=== PATIENT | female | born 1955 | race Caucasian/White ===

== ENCOUNTER → 2017-09-19 06:20 | Outpatient (CLI) | payer OTHER, SELFPAY ==
[2017-09-19 08:56] LABS: ALB/GLOB Ratio 1.2 RATIO (0.9-2.4); AST(SGOT) 29 U/L (15-37); Alanine Aminotransfer ALT/SGPT 35 U/L (13-56); Albumin, Serum 3.8 g/dL (3.2-5.0); Alkaline Phosphatase 79 U/L (45-117); Anion Gap 6 (5-15); BUN 16 mg/dL (7-18); BUN/Creat Ratio 23.2 RATIO (10-20); Calcium,Total 8.7 mg/dL (8.5-10.1); Chloride 108 mmol/L (98-107); Creatinine, Serum 0.69 mg/dL (0.55-1.02); EST Glomerular Filtration Rate 92 mL/min (>60); Est Glom Filt Rate - Afr Amer 111 mL/min (>60); Ferritin 50 ng/mL (8-252); Globulin 3.3 g/dL (2.2-4.2); Glucose 87 mg/dL (74-106); Iron 115 ug/dL (50-170); Potassium 3.8 mmol/L (3.5-5.1); Protein, Total 7.1 g/dL (6.4-8.2); Sodium Level 146 mmol/L (136-145)
[2017-09-19 09:13] LABS: Vitamin B12 723 pg/mL (211-911); Vitamin D,25 Hydroxy 56.3 ng/mL (29.95-100.01)
[2017-09-22 10:11] LABS: Vitamin B1, Thiamine 130.2 nmol/L (66.5-200.0); Zinc, Plasma or Serum 75 ug/dL (56-134)
== END ==
PROVIDERS: Family Provider Family Medicine; PCP Family Medicine
DX: K90.9 Intestinal malabsorption, unspecified (principal); E78.5 Hyperlipidemia, unspecified; E61.9 Deficiency of nutrient element, unspecified; E66.01 Morbid (severe) obesity due to excess calories
CPT/HCPCS: 36415; 80053; 82306; 82607; 82728; 82746; 83540; 83735; 84425; 84630

== ENCOUNTER → 2017-10-26 13:46 | Outpatient (CLI) | payer OTHER, SELFPAY ==
[2017-10-26 14:58] LABS: Absolute Lymphocyte Count 1.66 X10^3/ul (0.83-4.51); Absolute Neutrophil Count 1.7 X10^3/uL (2.0-7.7); Basophil# 0.01 X10^3/uL; Basophil% 0.3 % (0-1); Eosinophil# 0.06 X10^3/uL; Eosinophils% 1.7 % (0-5); Hematocrit 36.1 % (37-47); Hemoglobin 12.1 g/dl (12.0-15.0); Lymphocyte # 1.66 X10^3/ul (4.0); Lymphocyte % 46.1 % (19-41); Mean Corp Hgb Conc 33.5 g/gl (32-36); Mean Corpuscular Hgb 30.9 pg (27.0-32.0); Mean Corpuscular Volume 92.1 fL (81-99); Mean Platelet Vol. 10.3 fl (6.2-12.0); Monocyte# 0.15 X10^3/uL; Monocyte% 4.2 % (0-10); Neutrophil # 1.72 X10^3/uL (2.7-7.7); Neutrophil % 47.7 % (47-70); Platelet Count 196 K/mm3 (150-450); RBC Distribution Width CV 13.3 % (11.6-14.6); Red Blood Count 3.92 M/mm3 (4.2-5.4); White Blood Count 3.6 K/mm3 (4.4-11.0)
[2017-10-26 15:03] LABS: POSITIVE COUNT NO; POSITIVE DIFFERENTIAL NO; POSITIVE MORPHOLOGY NO
== END ==
PROVIDERS: Family Provider Family Medicine; PCP Family Medicine
DX: D72.819 Decreased white blood cell count, unspecified (principal)
CPT/HCPCS: 36415; 85025

== ENCOUNTER → 2018-04-13 16:22 | Outpatient (CLI) | payer OTHER, SELFPAY ==
[2017-01-27 07:55] VITALS: BMI 23.6
[2018-04-13 18:36] LABS: ALB/GLOB Ratio 1.1 RATIO (0.9-2.4); AST(SGOT) 21 U/L (15-37); Alanine Aminotransfer ALT/SGPT 27 U/L (13-56); Albumin, Serum 3.8 g/dL (3.2-5.0); Alkaline Phosphatase 87 U/L (45-117); Anion Gap 7 (5-15); BUN 18 mg/dL (7-18); BUN/Creat Ratio 26.5 RATIO (10-20); Calcium,Total 8.7 mg/dL (8.5-10.1); Chloride 108 mmol/L (98-107); Creatinine, Serum 0.68 mg/dL (0.55-1.02); EST Glomerular Filtration Rate 93 mL/min (>60); Est Glom Filt Rate - Afr Amer 113 mL/min (>60); Globulin 3.4 g/dL (2.2-4.2); Glucose 51 mg/dL (74-106); Iron 88 ug/dL (50-170); Potassium 3.9 mmol/L (3.5-5.1); Protein, Total 7.2 g/dL (6.4-8.2); Sodium Level 145 mmol/L (136-145)
[2018-04-17 08:51] LABS: Cholesterol 163 mg/dL (200); Ferritin 33 ng/mL (8-252); High Density Lipoprotein 52 mg/dL; Magnesium 2.2 mg/dL (1.6-2.6); Triglycerides 83 mg/dL; Very Low Density Lipoprotein 17 mg/dL (5-40)
--- OUTSIDE RECORDS SUMMARY | 2018-05-30 14:01 | XMS RPT_ITS ---
:04/03/1947 Author Organization [employer] Address [address] [place] [id number] Phone Care Team Providers Name Role Phone Pilar HIGGINS, Sotero Iniguez Unavailable Reason for Visit Reason For Visit Description Start Date Follow-up by complaint Preliminary reason for visit data, not yet signed by the author as of right shoulder pain Preliminary reason for visit data, not yet signed by the author as of Chief Complaint Chief Complaint Description Start Date right shoulder pain Preliminary chief complaint data, not yet signed by the author as of Instructions Instruction Description Start Date CompletedPatient advised to follow-up with Primary Care Physician for BMI management. Plan of Care Type Date Detail Appointment 08:45 AM Sotero Quezada MD, [address] [place] [facility], [place], [address], Medications Medication Instructions Start Stop Generic Name NDC Provider Date Date MULTIVITAMIN & daily / MULTIPLE [id number] Terena Feng MINERAL LIQD 23 VITAMINS-MINERALS RN CALCIUM 600 MG daily / CALCIUM 35692209362 Terena Feng TABS 23 RN VITAMIN D3 1000 daily / CHOLECALCIFEROL 62949569825 Terena Feng UNIT TABS 23 RN B-12 1000 MCG daily / CYANOCOBALAMIN 44048101735 Terena Feng CAPS 23 RN VITAMIN C 1000 daily / ASCORBIC ACID 14042461919 Terena Feng MG TABS 23 RN ESCITALOPRAM 1 tablet once / ESCITALOPRAM 33520037476 Terena Feng OXALATE 10 MG daily 23 OXALATE RN TABS LEVOTHYROXINE 1 tablet once / LEVOTHYROXINE 66383059947 Terena Feng SODIUM 200 MCG daily 23 SODIUM RN TABS ALPRAZOLAM 0.25 1 tablet as / ALPRAZOLAM 01795540046 Terena Feng MG TABS directed as 23 RN needed PROMETHAZINE HCL 1 tablet as / PROMETHAZINE HCL 63490394584 Terena Feng 25 MG TABS directed as 23 RN neded PRILOSEC 20 MG 1 capsule once / OMEPRAZOLE 59897798045 Terena Feng ORAL CAPSULE daily 23 RN DELAYED RELEASE ASPIRIN 81 MG 1 tablet once / ASPIRIN 49790733181 Terena Feng TBEC daily 23 RN NARATRIPTAN HCL 1 tablet as / NARATRIPTAN HCL 36278782256 Terena Feng 2.5 MG TABS directed as 23 RN needed Conditions or Problems Problem Name Problem Onset Status Entry Provider Comment Standard Annotate Code Date Date Description Complete M75.121 Active Sotero Iniguez Complete rotator cuff (ICD-10-CM) / Pilar rotator cuff tear or MD tear or rupture of rupture of right right shoulder not shoulder, specified as not traumatic specified as traumatic Impingement 793871985 Active Sotero Iniguez 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 Vital Signs Date Name Value Unit Description BMI (Body Mass 30.45 kg/m2 Body Mass Index Index) [Ratio] Preliminary vital sign data, not yet signed by the author as of BP Diastolic 71 mm[Hg] blood pressure, diastolic Preliminary vital sign data, not yet signed by the author as of BP Systolic 112 mm[Hg] blood pressure, systolic Preliminary vital sign data, not yet signed by the author as of Heart Rate 73 /min pulse rate E&M Preliminary vital sign data, not yet signed by the author as of Height 66 [in_us] height E&M Preliminary vital sign data, not yet signed by the author as of Height 168 cm height in centimeters E&M Preliminary vital sign data, not yet signed by the author as of Weight Measured 188 [lb_av] weight E&M Preliminary vital sign data, not yet signed by the author as of Weight Measured 85 kg weight in kilograms E&M Preliminary vital sign data, not yet signed by the author as of Results Date Name Value Unit Range Flag Description Office Visit: Follow-up by Danial quezada: 4 MEDS REVIEW Done Documentation of current medications (procedure) Preliminary observation data, not yet signed by the author as of Preliminary observation data, not yet signed by the author as of MRI HX of the right MRI (magnetic shoulder on resonance 05/31/2017 at [facility]) history [facility] Preliminary observation data, not yet signed by the author as of XRAY HX of the Right xray history shoulder on 05/24/[address] [facility] Preliminary observation data, not yet signed by the author as of Clinical Summary: [facility] account number Procedures Code Procedure Name Date Entry Date [id number] SLINGSHOT 2 (BREG) I8761Y POLAR CARE KODIAK COMBO - SHOULDER (BREG) G8730 Pain assessment documented as positive - follow-up documented G8427 Current medications documented 1036F Tobacco screening was negative - non user G8417 BMI documented as above normal parameters - follow-up documented G8783 Blood pressure within normal parameters - no follow-up required [facility]-[id number] Patient Encounter Medications Administered No information available. Immunizations No information available. Advance Directives There may be information available, but it has not been provided by the sender. Assessments There may be information available, but it has not been provided by the sender. Review of Systems There may be information available, but it has not been provided by the sender. Family History There may be information available, but it has not been provided by the sender. History of Past Illness There may be information available, but it has not been provided by the sender. History of Present Illness There may be information available, but it has not been provided by the sender.
--- OUTSIDE RECORDS SUMMARY | 2018-05-30 14:01 | XMS RPT_ITS ---
:1955 Author Organization [employer] Address [address] [place] [address] Phone Care Team Providers Name Role Phone Philip HIGGINS, Michael Paris Reason for Visit Reason For Visit Description Start Date Postop - subsequent visit Preliminary reason for visit data, not yet signed by the author as of bleph post facelift open submentoplasty bilateral upper and lower blepharoplasty autologous fat grafting to nasolabial creases tear troughs and zygoma; aurelia oral chemical phenol croton-oil chemical peel on 02/20/2018 Preliminary reason for visit data, not yet signed by the author as of Chief Complaint Chief Complaint Description Start Date bleph post facelift open submentoplasty bilateral upper and lower blepharoplasty autologous fat grafting to nasolabial creases tear troughs and zygoma; aurelia oral chemical phenol croton-oil chemical peel on 02/20/2018 Preliminary chief complaint data, not yet signed by the author as of Instructions No information available. Plan of Care Type Date Detail Appointment 08:15 AM Michael Palacios MD, [address] [address], [place], [address], Medications Medication Instructions Start Stop Generic Name NDC Provider Date Date CALCIUM 600 + D 1 tablet daily / CALCIUM [id number] Estefania TABS 27 CARB-CHOLECALCIFE [place] ROL TABS TESTER REGULATOR VITAMIN D3 2000 1 capsule twice / CHOLECALCIFEROL 87929997439 Estefania UNIT CAPS daily 27 [place] TESTER REGULATOR PANTOPRAZOLE 1 tablet daily / PANTOPRAZOLE 59035053967 Estefania SODIUM 40 MG 27 SODIUM [place] TBEC TESTER REGULATOR ONE DAILY 1 tablet daily MULTIPLE 56455937609 Estefania MULTIVITAMIN/IR 27 VITAMINS-IRON [place] ON TABS TESTER REGULATOR BIOTIN 07867 1 tablet twice BIOTIN 55198029461 Estefania MCG TABS daily 27 [place] TESTER REGULATOR Conditions or Problems Problem Name Problem Onset Status Entry Provider Comment Standard Annotate Code Date Date Description 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 Michael S 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/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/01 Philip HIGGINS lower eyelid CT) Blepharochala 30302170 Active Michael S Blepharochalasis sis of left (SNOMED 11/01 11/01 Philip HIGGINS lower eyelid CT) Laxity of 491148345 Active Michael S Skin finding facial skin (SNOMED 11/01 11/[address]) Facial 390948740 Active Michael S Facial appearance jowling (SNOMED 11/01 11/[address] CT) Blepharochala 02469531 Active Michael S Blepharochalasis sis of left (SNOMED 11/01 11/01 Philip HIGGINS upper eyelid CT) Blepharochala 17004063 Active Michael S 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/01 11/01 Philip HIGGINS upper eyelid CT) Allergies, Adverse Reactions, Alerts Observed no known allergies at Social History No information available. Vital Signs Date Name Value Unit Description BMI (Body Mass 22.38 kg/m2 Body Mass Index Index) [Ratio] Preliminary vital sign data, not yet signed by the author as of BP Diastolic 74 mm[Hg] blood pressure, diastolic Preliminary vital sign data, not yet signed by the author as of BP Systolic 113 mm[Hg] blood pressure, systolic Preliminary vital sign data, not yet signed by the author as of Heart Rate 71 /min pulse rate E&M Preliminary vital sign data, not yet signed by the author as of Height 65 [in_us] height E&M Preliminary vital sign data, not yet signed by the author as of Height 165 cm height in centimeters E&M Preliminary vital sign data, not yet signed by the author as of Weight Measured 134 [lb_av] weight E&M Preliminary vital sign data, not yet signed by the author as of Weight Measured 61 kg weight in kilograms E&M Preliminary vital sign data, not yet signed by the author as of Results Date Name Value Unit Range Flag Description Office Visit: Postop - subsequent visit, Rm: 6 MEDS REVIEW Done Documentation of current medications (procedure) Preliminary observation data, not yet signed by the author as of Preliminary observation data, not yet signed by the author as of Clinical Summary: [facility] account number Procedures Code Procedure Name Date Entry Date G8731 Pain assessment documented as negative - follow-up not required G8427 Current medications documented 1036F Tobacco screening was negative - non user G8420 BMI documented within normal parameters - no follow-up plan is required G8783 Blood pressure within normal parameters - no follow-up required [facility]-[id number] Patient Encounter Medications Administered No information available. [...]
--- OUTSIDE RECORDS SUMMARY | 2018-05-30 14:02 | XMS RPT_ITS ---
:1955 Author Organization [place] Support Name Relationship Address Phone Colton Siddiqi Unavailable Unavailable + Lee Siddiqiisha Unavailable Unavailable + DEVANG COLTON Unavailable [address] + [place] [address] [facility] Unavailable [address] + [place] [address] DEVANG COLTON Unavailable [address] + [place] [address] [facility] Unavailable [address] + [place] [address] Devang Colton Unavailable Unavailable + Lee Siddiqiisha Unavailable Unavailable + DEVANG COLTON Unavailable [address] + [place] [address] [facility] Unavailable [address] + [place] [address] Devang Colton Unavailable Unavailable + Devang Allisha Unavailable Unavailable + DEVANG COLTON Unavailable [address] + [place] [address] [facility] Unavailable [address] + [place] [address] DEVANG COLTON Unavailable [address] + [place] [address] [facility] Un[address] + [place] [address] Devang Colton Unavailable Unavailable + Devang, Allisha Unavailable Unavailable + COLTON SIDDIQI Unavailable [address] + [place] [address] [facility] Unavailable [address] + [place] [address] COLTON SIDDIQI Unavailable [address] + [place] [address] [facility] Unavailable [address] + [place] [address] Care Team Providers Name Role Phone MIHAELA BASURTO Attending Unavailable MIHAELA BASURTO Referring Unavailable MIHAELA BASURTO Referring Unavailable MIHAELA BASURTO Referring Unavailable PROVIDER, UNKNOWN Referring Unavailable Hood, Semaj Primary Care Unavailable Shira Evans Attending Unavailable PROVIDER, UNKNOWN Referring Unavailable Hood, Semaj Primary Care Unavailable Shira Evans Attending Unavailable PROVIDER, UNKNOWN Referring Unavailable Hood, Semaj Primary Care Unavailable Shira Evans Attending Unavailable PROVIDER, UNKNOWN Referring Unavailable Hood, Semaj Primary Care Unavailable YARELIS WESLEYA RNestor Attending Unavailable CHANCE AYON Attending Unavailable CHANCE AYON Referring Unavailable Hood, Semaj Primary Care Unavailable CHANCE AYON Attending Unavailable Hood, Semaj Primary Care Unavailable CHANCE AYON Attending Unavailable CHANCE AYON Referring Unavailable Hood, Semaj Primary Care Unavailable ASSESSMENT, HEALTH RISK Attending Unavailable ASSESSMENT, HEALTH RISK Referring Unavailable Hood, Semaj Primary Care Unavailable CHANCE AYON Attending Unavailable CHANCE AYON Referring Unavailable Hood, Semaj Primary Care Unavailable CHANCE AYON Attending Unavailable Hood, Semaj Primary Care Unavailable CHANCE AYON Referring Unavailable Mathieu Escamilla Attending Unavailable Hood, Semaj Referring Unavailable PROBLEMS PROBLEMS DATE TYPE CONDITION / CODE ATTENDING STATUS SOURCE 05/19/2018 Admitting Gastro-esophageal BRIDLE ANNA Monitor110 Diagnosis reflux disease R. System without esophagitis Repository / K21.9(ICD-10) 05/19/2018 Admitting Bariatric surgery ANNA WESLEY Monitor110 Diagnosis status / R. 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 System elsewhere Repository classified / K91.2(ICD-10) 05/19/2018 Admitting Epigastric pain / BRIDLEANNA Active [facility] Diagnosis R10.13(ICD-10) R. System Repository 04/14/2018 Admitting Obstructive sleep Shira Evans Active [facility] Diagnosis apnea (adult) System (pediatric) / Repository G47.33(ICD-10) 04/14/2018 Admitting Body mass index Shira Evans Active [facility] Diagnosis (BMI) 22.0-22.9, System adult / Repository Z68.22(ICD-10) 01/04/2018 Active Other abnormal and Active [place] inconclusive [facility] Main findings on [place] diagnostic imaging Repository of breast / R92.8(ICD-10) 12/19/2017 Active Encounter for Active [place] gynecological [facility] Main examination [place] (general) (routine) Repository without abnormal findings / Z01.419(ICD-10) 12/19/[address] 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 System elements / Repository E61.7(ICD-10) 09/23/2017 Admitting Encounter for Shira Evans Active [facility] Diagnosis screening for System lipoid disorders / Repository Z13.220(ICD-10) 09/23/2017 Admitting Decreased white Shira Evans [employer] [facility] Diagnosis blood cell count, System unspecified / Repository D72.819(ICD-10) 09/19/2017 Unknown E78.5 - CHANCE AYON Active [facility] Hyperlipidemia, Community unspecified / Hospital E78.5(ICD-10) Repository PROCEDURES PROCEDURES No Procedure Records FoundRESULTS RESULTS CBC-COMPLETE BLOOD CNT Collected: 04/24/2018 Status: F Source: [place] NO DIFF [facility] TYPE CODE TESTS RESULT OUT OF RANGE REFERENCE UNITS LAB L100.1000 4.4-11.0 K/mm3 Low WBC 4.0 LAB L100.1200 4.2-5.4 M/mm3 Low RBC 4.19 LAB L100.1300 12.0-15.0 g/dl Normal HGB 12.9 LAB L100.1400 37-47 % Normal HCT 38.7 LAB L100.1500 81-99 fL Normal MCV 92.4 LAB L100.1600 27.0-32.0 pg Normal MCH 30.8 LAB L100.1700 32-36 g/gl Normal MCHC 33.3 LAB L100.1810 11.6-14.6 % Normal RDW CV 13.4 LAB L100.1820 35.1-43.9 fl High RDW SD 45.2 LAB L100.1900 150-450 K/mm3 Normal PLT 205 LAB L100.2000 6.2-12.0 fl Normal MPV 10.0 Performed By: #### L100.0500 #### [facility] [address] [place], [place], [address] VITAMIN B12 Collected: 04/24/2018 Status: F Source: [place] 9:40 AM [facility] REPOSITORY TYPE CODE TESTS RESULT OUT OF RANGE REFERENCE UNITS LAB L503.0105 211-911 pg/mL Normal Vitamin B12 644 Performed By: #### L503.0105, L506.1000 #### [facility] [address] [place], [address] VITAMIN D,25 HYDROXY Collected: 04/24/2018 Status: F Source: [place] 9:40 AM [facility] REPOSITORY TYPE CODE TESTS RESULT OUT OF RANGE REFERENCE UNITS LAB L506.1000 29.95-100.01 ng/mL Normal Vitamin D 38.6 25-OH Result Comment: Vitamin D 25(OH) Status Range Deficiency <20 ng/mL (50nmol/L) Insuffciency 20 - 30 ng/mL (50 - 75 nmol/L) Sufficiency 30 - 100 ng/mL (75 - 250 nmol/L) Toxicity >100 ng/mL (>250 nmol/L) Performed By: #### L503.0105, L506.1000 #### [facility] [address] [place], [address] LIPID PROFILE Collected: 04/24/2018 Status: F Source: [place] 9:40 AM [facility] REPOSITORY Order Comment: Is Patient Taking Vitamins or Folic Acid Supplements? N TYPE CODE TESTS RESULT OUT OF RANGE REFERENCE UNITS LAB L501.4900 200 mg/dL Normal CHOL 138 Result Comment: <200 mg/dL Desirable 200-240 mg/dL Borderline >240 mg/dL High Risk LAB L501.5000 mg/dL Normal TRIG 104 Result Comment: The drugs N-Acetylcysteine and Metamizole may falsely depress this assay. Serum Triglycerides Reference Interval Normal <150 mg/dL Borderline high 150 - 199 mg/dL High 200 - 499 mg/dL Very High > or = 500 mg/dL LAB L501.6400 mg/dL Normal HDL 54 Result Comment: The drugs N-Acetylcysteine and Metamizole may falsely depress this assay. Reference Range HDL <40 mg/dL Low HDL Cholesterol HDL >or= 60 mg/dL High HDL Cholesterol LAB L501.6500 0-130 mg/dL Normal LDL 63 LAB L501.6600 5-40 mg/dL Normal VLDL 21 Performed By: #### L500.4100, L501.5200, L503.6550, L506.0250 #### [facility] [address] [place], [address] MAGNESIUM Collected: 04/24/2018 Status: F Source: [place] 9:40 AM [facility] REPOSITORY Order Comment: Is Patient Taking Vitamins or Folic Acid Supplements? N TYPE CODE TESTS RESULT OUT OF RANGE REFERENCE UNITS LAB L501.5200 1.6-2.6 mg/dL Normal MG 1.9 Performed By: #### L500.4100, L501.5200, L503.6550, L506.0250 #### [facility] [address] [place], [address] FERRITIN Collected: 04/24/2018 Status: F Source: [place] 9:40 AM [facility] REPOSITORY Order Comment: Is Patient Taking Vitamins or Folic Acid Supplements? N TYPE CODE TESTS RESULT OUT OF RANGE REFERENCE UNITS LAB L503.6550 8252 ng/mL Normal FERRITIN 36 Performed By: #### L500.4100, L501.5200, L503.6550, L506.0250 #### [facility] [address] [place], [address] FOLATES, (FOLIC ACID) Collected: 04/24/2018 Status: F Source: [place] 9:40 AM [facility] REPOSITORY Order Comment: Is Patient Taking Vitamins or Folic Acid Supplements? N TYPE CODE TESTS RESULT OUT OF RANGE REFERENCE UNITS LAB L506.0250 3.1-55.4 ng/mL Normal FOLATES 21.90 Performed By: #### L500.4100, L501.5200, L503.6550, L506.0250 #### [facility] [address] [place], [place], [address] VITAMIN B1, THIAMINE Collected: 04/24/2018 Status: F Source: [place] 9:40 AM [facility] REPOSITORY TYPE CODE TESTS RESULT OUT OF RANGE REFERENCE UNITS LAB L3300.8000 66.5-200.0 nmol/L Normal VIT B1 149.5 Result Comment: This test was developed and its performance characteristics determined by [facility]. It has not been cleared or approved by the Food and Drug Administration. Performed By: #### L3300.8000, L3300.9900 #### [facility] (refer to report for specific site) refer to report for address and phone number ZINC, PLASMA OR Collected: 04/24/2018 Status: F Source: [place] SERUM 9:40 AM [facility] REPOSITORY TYPE CODE TESTS RESULT OUT OF RANGE REFERENCE UNITS LAB L3300.9900 56-134 ug/dL Normal ZINC 76 Plasma/Ser Result Comment: Detection Limit = 5 Performed at: [facility] [id number] International Account Executive: Olya Rowley MD, Phone: [phone] Performed By: #### L3300.8000, L3300.9900 #### [facility] (refer to report for specific site) refer to report for address and phone number COMPREHENSIVE METABOLIC Collected: 04/13/2018 Status: F Source: [place] PROFIL 4:33 PM [facility] REPOSITORY Order Comment: Is Patient Taking Vitamins or Folic Acid Supplements? N TYPE CODE TESTS RESULT OUT OF RANGE REFERENCE UNITS LAB L501.0100 74-106 mg/dL Low GLU 51 Result Comment: Please note revised GLUCOSE reference range effective 2017. LAB L501.1000 7-18 mg/dL Normal BUN 18 LAB L501.1100 0.55-1.02 mg/dL Normal CREAT,SERUM 0.68 Result Comment: The validity of the calculated GFR AND GFRAA in patients over 70 years has not been determined. Clinical correlation is essential. LAB L501.1110 >60 mL/min Normal EST GFR 93 Result Comment: Non- GFR Calc LAB L501.1115 >60 mL/min Normal EST GFR - AA 113 Result Comment: GFR Calc LAB L501.1300 10-20 RATIO High BUN/CRE 26.5 LAB L501.1500 6.4-8.2 g/dL T Normal PROT 7.2 LAB L501.1800 3.2-5.0 g/dL Normal ALB 3.8 LAB L501.1950 2.2-4.2 g/dL Normal GLOB 3.4 LAB L501.2000 0.9-2.4 RATIO Normal A/G 1.1 LAB L501.2200 8.5-10.1 mg/dL CA Normal 8.7 LAB L501.4100 15-37 U/L Normal AST 21 LAB L501.4305 45-117 U/L Normal ALK P 87 LAB L501.4405 13-56 U/L Normal ALT 27 LAB L501.4600 0.20-1.00 mg/dL T Normal BILI 0.50 LAB L501.5300 136-145 mmol/L NA Normal 145 LAB L501.5600 3.5-5.1 mmol/L K Normal 3.9 LAB L501.5900 98-107 mmol/L High CL 108 LAB L501.6100 21.0-32.0 mmol/L Normal CO2 30.0 LAB L501.6200 5-15 Normal GAP 7 Performed By: #### L500.4050, L503.6150, L500.4100, L501.5200, L503.6550, L506.0250 #### [facility] [place], [address] IRON Collected: 04/13/2018 Status: F Source: [place] 4:33 PM [facility] REPOSITORY Order Comment: Is Patient Taking Vitamins or Folic Acid Supplements? N TYPE CODE TESTS RESULT OUT OF RANGE REFERENCE UNITS LAB L503.6150 50-170 ug/dL Normal IRON 88 Performed By: #### L500.4050, L503.6150, L500.4100, L501.5200, L503.6550, L506.0250 #### [facility] [address] [place], [place], [address] LIPID PROFILE Collected: 04/13/2018 Status: F Source: [place] 4:33 PM [facility] REPOSITORY Order Comment: Is Patient Taking Vitamins or Folic Acid Supplements? N TYPE CODE TESTS RESULT OUT OF RANGE REFERENCE UNITS LAB L501.4900 200 mg/dL Normal CHOL 163 Result Comment: <200 mg/dL Desirable 200-240 mg/dL Borderline >240 mg/dL High Risk LAB L501.5000 mg/dL Normal TRIG 83 Result Comment: The drugs N-Acetylcysteine and Metamizole may falsely depress this assay. Serum Triglycerides Reference Interval Normal <150 mg/dL Borderline high 150 - 199 mg/dL High 200 - 499 mg/dL Very High > or = 500 mg/dL LAB L501.6400 mg/dL Normal HDL 52 Result Comment: The drugs N-Acetylcysteine and Metamizole may falsely depress this assay. Reference Range HDL <40 mg/dL Low HDL Cholesterol HDL >or= 60 mg/dL High HDL Cholesterol LAB L501.6500 0-130 mg/dL Normal LDL 94 LAB L501.6600 5-40 mg/dL Normal VLDL 17 Performed By: #### L500.4050, L503.6150, L500.4100, L501.5200, L503.6550, L506.0250 #### [facility] [address] [place], [place], [address] MAGNESIUM Collected: 04/13/2018 Status: F Source: [place] 4:33 PM [facility] REPOSITORY Order Comment: Is Patient Taking Vitamins or Folic Acid Supplements? N TYPE CODE TESTS RESULT OUT OF RANGE REFERENCE UNITS LAB L501.5200 1.6-2.6 mg/dL Normal MG 2.2 Performed By: #### L500.4050, L503.6150, L500.4100, L501.5200, L503.6550, L506.0250 #### [facility] [address] [place], [place], [address] FERRITIN Collected: 04/13/2018 Status: F Source: [place] 4:33 PM [facility] REPOSITORY Order Comment: Is Patient Taking Vitamins or Folic Acid Supplements? N TYPE CODE TESTS RESULT OUT OF RANGE REFERENCE UNITS LAB L503.6550 8-252 ng/mL Normal FERRITIN 33 Performed By: #### L500.4050, L503.6150, L500.4100, L501.5200, L503.6550, L506.0250 #### [facility] [address] [place], [place], [id number] FOLATES, (FOLIC ACID) Collected: 04/13/2018 Status: F Source: [place] 4:33 PM [facility] REPOSITORY Order Comment: Is Patient Taking Vitamins or Folic Acid Supplements? N TYPE CODE TESTS RESULT OUT OF RANGE REFERENCE UNITS LAB L506.0250 3.1-55.4 ng/mL Normal FOLATES 22.80 Performed By: #### L500.4050, L503.6150, L500.4100, L501.5200, L503.6550, L506.0250 #### [facility] [address] [place], [place], [address] PROGRESS Observed: 01/04/2018 Status: COMPLETED Source: [place] 3:48 PM [facility] REPOSITORY HNO ID: [id number] Author: Dary Stark Service: (none) Author Type: Ship'S Captain Type: Progress Notes Filed: 01/04/2018 3:48 PM Note Text: Radiology Service Progress Note PATIENT NAME: Ladan Siddiqi DATE OF SERVICE: January 04, 2018 TIME: 3:48 PM PATIENT IDENTITY VERIFICATION COMPLETED USING TWO (2) METHODS: Patient confirmed name verbally and Date of . PATIENT GENDER DATA: Female. status: : No status: N/A PATIENT RELEVANT IMPLANT DATA REVIEWED: Not Applicable RADIOLOGY DEPARTMENT: Ultrasound PERIPHERAL IV DATA: Not applicable SIGNED BY: DARY STARK RDMS RVSagar January 04, 2018 3:48 PM [facility] Observed: 01/04/2018 Status: COMPLETED Source: [place] 3:43 PM [facility] REPOSITORY HNO ID: [id number] Author: Mammography Coordinator Service: (none) Author Type: Physician Type: Letter Filed: 01/05/2018 11:32 PM Note Text: January 04, 2018 PID: [id number] Ladan Siddiqi [address] [place] [address] Dear Ms. Siddiqi, Your recent breast imaging examination performed on 01/04/2018 showed an area that we believe is probably benign (not cancer). A six month follow-up is recommended to ensure your breast health. Please call [phone] to schedule an appointment for these tests if you have not already done so. Your mammogram demonstrates that you have dense breast tissue, which could hide abnormalities. Dense breast tissue, in and of itself, is a relatively common condition. Therefore, this information is not provided to cause undue concern; rather, it is to raise your awareness and promote discussion with your health care provider regarding the presence of dense breast tissue in addition to other risk factors. Early detection of cancer is very important. We also understand recommendations regarding breast cancer screening are controversial. Please discuss with your primary care provider which strategy is best for you and whether a mammogram is right for you. Your breast images and report will be kept on file here as part of your permanent medical record and are available for your continuing care. Thank you for allowing us to help in meeting your health care needs. Sincerely, Dr. Lu Interpreting Radiologist [facility] (# mo Follow-up) [facility] Observed: 01/04/2018 Status: COMPLETED Source: [place] 3:43 PM [facility] REPOSITORY HNO ID: [id number] Author: Mammography Coordinator Service: (none) Author Type: Physician Type: Letter Filed: 01/05/2018 11:32 PM Note Text: January 04, 2018 PID: [id number] Ladan Siddiqi [address] [place] [address] Dear Ms. Siddiqi, Your recent breast imaging examination performed on 01/04/2018 showed an area that we believe is probably benign (not cancer). A six month follow-up is recommended to ensure your breast health. Please call [phone] to schedule an appointment for these tests if you have not already done so. Your mammogram demonstrates that you have dense breast tissue, which could hide abnormalities. Dense breast tissue, in and of itself, is a relatively common condition. Therefore, this information is not provided to cause undue concern; rather, it is to raise your awareness and promote discussion with your health care provider regarding the presence of dense breast tissue in addition to other risk factors. Early detection of cancer is very important. We also understand recommendations regarding breast cancer screening are controversial. Please discuss with your primary care provider which strategy is best for you and whether a mammogram is right for you. Your breast images and report will be kept on file here as part of your permanent medical record and are available for your continuing care. Thank you for allowing us to help in meeting your health care needs. Sincerely, Dr. Lu Interpreting Radiologist [facility] (# mo Follow-up) [facility] [employer] Observed: 01/04/2018 Status: F Source: [place] RT 3:38 PM [facility] REPOSITORY * * *Final Report* * * DATE OF EXAM: Jan 04 2018 3:38PM WRU [id number] - [facility] BREAST Enjoi RT / PROCEDURE REASON: Other abnormal and inconclusive findings on diagnostic imaging of breast * * * * Physician Interpretation * * * * #[id number] - [facility] DIAGNOSTIC RT UNILATERAL RIGHT DIGITAL DIAGNOSTIC MAMMOGRAM WITH CAD: 01/04/2018 HISTORY: Other Abnormal And Inconclusive Findings On Diagnostic Imaging Of Breast /Call back/abnormal mamm: Right. RESULT: TECHNIQUE: The study was acquired using full field digital technology and interpreted from soft copy. Current study was also evaluated with a Computer Aided Detection (CAD). Comparison is made to exams dated: 12/19/2017 mammogram, 09/03/2016 mammogram, and 08/05/2015 mammogram - [facility]. The tissue of the right breast is heterogeneously dense. This may lower the sensitivity of mammography. There is a 6 mm oval equal density asymmetry with an obscured margin in the right breast middle depth medial region seen on the craniocaudal view only. No other significant masses or calcifications are seen in the breast. PROBABLY BENIGN - SHORT TERM INTERVAL FOLLOW-UP RECOMMENDED The 6 mm oval equal density asymmetry in the right breast is probably benign. #[id number] - [facility] US BREAST LTD RT ULTRASOUND OF RIGHT BREAST: 01/04/2018 RESULT: Comparison is made to exams dated: 12/19/2017 mammogram, 09/03/2016 mammogram, and 08/05/2015 mammogram - [facility]. Real-time ultrasound of the right breast was performed. There is a 0.6 cm x 0.7 cm x 0.3 cm oval cyst with a septated internal wall in the right breast at 3 o'clock posterior depth 1 cm from the nipple. This oval cyst is hypoechoic with a well-defined boundary and internal echoes. This correlates with mammography findings. There are additional smaller complicated cysts. IMPRESSION: PROBABLY BENIGN - SHORT TERM INTERVAL FOLLOW-UP RECOMMENDED - FOLLOW-UP RECOMMENDED The 0.6 cm x 0.7 cm x 0.3 cm oval cyst in the right breast is consistent with a complicated cyst and is probably benign. A follow-up mammogram and an ultrasound in 6 months is recommended to demonstrate stability. Ilda nelson/geovanni:01/04/2018 15:43:17 Lead Quality Control Technician: Megan ASHRAF(Matt)(Hira), [facility] letter sent: # Mo FU Mammogram BI-RADS: 3 Probably benign finding - short term interval follow-up recommended Ultrasound BI-RADS: 3 Probably benign finding - short term interval follow-up recommended Manager Filter: Geovanni Transcribe Date/Time: Jan 04 2018 2:48P Dictated by : ILDA LU MD This examination was interpreted and the report reviewed and electronically signed by: ILDA LU MD on Jan 04 2018 3:43PM EST [id number] Observed: 01/04/2018 Status: COMPLETED Source: [place] 3:16 PM [facility] REPOSITORY O ID: [id number] Author: Megan Ashraf Service: (none) Author Type: (none) Type: Progress Notes Filed: 01/04/2018 3:17 PM Note Text: Radiology Service Progress Note PATIENT NAME: Ladan Siddiqi DATE OF SERVICE: January 04, 2018 TIME: 3:16 PM PATIENT IDENTITY VERIFICATION COMPLETED USING TWO (2) METHODS: Patient confirmed name verbally and Date of . PATIENT GENDER DATA: Female. status: : No status: NO. PATIENT RELEVANT IMPLANT DATA REVIEWED: Not Applicable RADIOLOGY DEPARTMENT: [facility] right diagnostic mammogram PERIPHERAL IV DATA: Not applicable SIGNED BY: Megan Gonzales Rt January 04, 2018 3:16 PM [facility] DIAGNOSTIC RT Observed: 01/04/2018 Status: F Source: [place] 3:06 PM [facility] REPOSITORY * * *Final Report* * * DATE OF EXAM: Jan 04 2018 3:06PM [id number] - [facility] DIAGNOSTIC RT / PROCEDURE REASON: Other abnormal and inconclusive findings on diagnostic imaging of breast * * * * Physician Interpretation * * * * RESULT: #[id number] - [facility] DIAGNOSTIC RT UNILATERAL RIGHT DIGITAL DIAGNOSTIC MAMMOGRAM WITH CAD: 01/04/2018 HISTORY: Other Abnormal And Inconclusive Findings On Diagnostic Imaging Of Breast /Call back/abnormal mamm: Right. RESULT: TECHNIQUE: The study was acquired using full field digital technology and interpreted from soft copy. Current study was also evaluated with a Computer Aided Detection (CAD). Comparison is made to exams dated: 12/19/2017 mammogram, 09/03/2016 mammogram, and 08/05/2015 mammogram - [facility]. The tissue of the right breast is heterogeneously dense. This may lower the sensitivity of mammography. There is a 6 mm oval equal density asymmetry with an obscured margin in the right breast middle depth medial region seen on the craniocaudal view only. No other significant masses or calcifications are seen in the breast. PROBABLY BENIGN - SHORT TERM INTERVAL FOLLOW-UP RECOMMENDED The 6 mm oval equal density asymmetry in the right breast is probably benign. #[id number] - [facility] US BREAST LTD RT ULTRASOUND OF RIGHT BREAST: 01/04/2018 RESULT: Comparison is made to exams dated: 12/19/2017 mammogram, 09/03/2016 mammogram, and 08/05/2015 mammogram - [facility]. Real-time ultrasound of the right breast was performed. There is a 0.6 cm x 0.7 cm x 0.3 cm oval cyst with a septated internal wall in the right breast at 3 o'clock posterior depth 1 cm from the nipple. This oval cyst is hypoechoic with a well-defined boundary and internal echoes. This correlates with mammography findings. There are additional smaller complicated cysts. IMPRESSION: PROBABLY BENIGN - SHORT TERM INTERVAL FOLLOW-UP RECOMMENDED - FOLLOW-UP RECOMMENDED The 0.6 cm x 0.7 cm x 0.3 cm oval cyst in the right breast is consistent with a complicated cyst and is probably benign. A follow-up mammogram and an ultrasound in 6 months is recommended to demonstrate stability. Ilda nelson/geovanni:01/04/2018 15:43:17 Lead Quality Control Technician: Megan COLON)(Hira, [facility] letter sent: # Mo FU Mammogram BI-RADS: 3 Probably benign finding - short term interval follow-up recommended Ultrasound BI-RADS: 3 Probably benign finding - short term interval follow-up recommended Manager Filter: Geovanni Transcribe Date/Time: Jan 04 2018 2:48P Dictated by: ILDA LU MD This examination was interpreted and the report reviewed and electronically signed by: ILDA LU MD on Jan 04 2018 3:43PM EST [id number] CNCO Observed: 12/19/2017 Status: COMPLETED Source: [place] 3:53 PM [facility] REPOSITORY HNO ID: [id number] Author: Mammography Coordinator Service: (none) Author Type: Physician Type: Letter Filed: 12/20/2017 11:33 PM Note Text: December 19, 2017 PID: [id number] Ladan Siddiqi [address] [place] [address] Dear Ms. Siddiqi, Your recent breast imaging exam on 12/19/2017 showed a possible finding that requires additional imaging studies for a complete evaluation. Most such findings are probably benign (not cancer). Please call [phone] or [phone]: [phone] to schedule an appointment for your additional imaging if you have not already done so. Your mammogram demonstrates that you have dense breast tissue, which could hide abnormalities. Dense breast tissue, in and of itself, is a relatively common condition. Therefore, this information is not provided to cause undue concern; rather, it is to raise your awareness and promote discussion with your health care provider regarding the presence of dense breast tissue in addition to other risk factors. Your breast images and report will be kept on file here as part of your permanent medical record and are available for your continuing care. Thank you for allowing us to help in meeting your health care needs. Sincerely, Dr. Carrera Interpreting Radiologist [facility] (Additional imaging) [facility] SCREENING Observed: 12/19/2017 Status: F Source: [place] 3:37 PM [facility] RE[facility] * * *Final Report* * * DATE OF EXAM: Dec 19 2017 3:37PM WOW [id number] - [facility] SCREENING / PROCEDURE REASON: multiple diagnoses * * * * Physician Interpretation * * * * RESULT: #[id number] - [facility] SCREENING BILATERAL DIGITAL SCREENING MAMMOGRAM WITH CAD: 12/19/2017 HISTORY: Multiple Diagnoses\ Screening Mammogram - patient reports NO breast symptoms /SEE TECH NOTE /patient reports no breast symptoms /priors available for comparison. RESULT: TECHNIQUE: The study was acquired using full field digital technology and interpreted from soft copy. Current study was also evaluated with a Computer Aided Detection (CAD). Comparison is made to exams dated: 09/03/2016 mammogram, 08/05/2015 mammogram, 03/29/2011 mammogram, 03/30/2012 mammogram, and 05/29/2013 mammogram - [facility]. The tissue of both breasts is heterogeneously dense. This may lower the sensitivity of mammography. There is an asymmetry in the right breast anterior depth inner region seen on the craniocaudal view only. No other significant masses, calcifications, or other findings are seen in either breast. IMPRESSION: INCOMPLETE: NEEDS ADDITIONAL IMAGING EVALUATION The asymmetry in the right breast is indeterminate. Additional views are recommended. Chicho Carrera M.D. pt/geovanni:12/19/2017 15:53:08 Lead Quality Control Technician: Camryn ASHRAF(R)(Hira), [facility] letter sent: Additional Imaging Needed Mammogram BI-RADS: 0 Incomplete: needs additional imaging evaluation If this report indicates you need additional imaging, and it has NOT yet been performed, please call , to schedule. We sincerely thank you for choosing the [facility] for your breast imaging needs. Manager Filter: Geovanni Transcribe Date/Time: Dec 19 2017 3:38P Dictated by: CHICHO CARRERA MD This examination was interpreted and the report reviewed and electronically signed by: CHICHO CARRERA MD on Dec 19 2017 3:53PM EST [id number] PROGRESS Observed: 12/08/2017 Status: COMPLETED Source: [place] 3:43 PM [facility] REPOSITORY O ID: [id number] Author: Mihaela Basurto Service: (none) Author Type: Physician Type: Progress Notes Filed: 12/08/2017 5:01 PM Note Text: Ladan Siddiqi is a 62 year old who presents for her annual gynecologic exam without complaints. Postmenopausal: Yes Last Pap: 2016 normal HPV: 2016 negative History of abnormal pap: Yes - more than 20 years ago Last mammogram: 2017 normal History of abnormal mammogram: Yes Obstetric History T0 L2 SAB0 TAB0 Ectopic0 Multiple0 Live Births0 PAST MEDICAL HISTORY Diagnosis Date - Branch retinal vein occlusion of left eye 05/2010 PAST SURGICAL HISTORY Procedure Laterality Date - COLONOSCOP W/ OR W/O BRSH SPEC 2004 Colonoscopy - COLONOSCOP W/ OR W/O BRSH SPEC 06/21/14 Colonoscopy - DANDC, DIAG AND/OR THERAPEUTIC Dilation AND curettage - GASTRIC BYPASS HX 03/2016 - L'SCOPE DX W/WO BRUSHINGS/WASHINGS 1979 Laparoscopy - PAST SURGICAL HISTORY OF BREAST BIOPSY - SLING OPER STRES INCONTINENCE 09/05/14 and cystoscopy - VITRECTOMY,FOCAL LASER RX RETINA 05/2015 left eye FAMILY HISTORY Problem Relation Age of Onset - Colon Cancer Mother - Breast Cancer Mother 75 mastectomy - Breast Cancer Maternal Aunt SOCIAL HISTORY Social History Substance Use Topics - Smoking status: Former Smoker Packs/day: 1.50 Years: 36.00 - Smokeless tobacco: Never Used Comment: started at age 14; quit 2005 - Alcohol use No REVIEW OF SYSTEMS Abdomen: No abdominal pain, nausea, vomiting, diarrhea, or constipation. No bloating, early satiety, indigestion, or increased flatulence. Bladder: No dysuria, gross hematuria, urinary frequency, urinary urgency, or incontinence Breast: No breast lumps, nipple d/c, overlying skin changes, redness or skin retraction Allergies and current medication updated:Yes EXAM: Ht 5' 5 (1.65m) Wt 133 lb (60.3kg) LMP 05/02/2004 BMI 22.13 kg/(m2). GENERAL: pleasant, female in no apparent distress BREAST: soft, non-tender, symmetric, no dominant mass, normal nipple-areolar complex, no lymphadenopathy and no nipple discharge CHEST: Normal inspiratory effort ABDOMEN: soft, non-tender and no masses PELVIC: external genitalia normal, no vulvar lesions, no cervical lesions, normal appearing perineal body and perianal region BIMANUAL: uterus normal size, shape and consistency, no adnexal masses and non-tender RECTOVAGINAL: rectovaginal exam negative for any masses or nodularity. NEURO: alert and oriented x3,exam grossly non-focal EXTREMITIES: normal ASSESSMENT/PLAN: 1) Health maintenance: Pap/HPV up to date. Mammogram ordered Nutrition, exercise and routine health maintenance exams reviewed. Colon cancer screening: up to date with screening 2) Follow up one year or sooner as needed 3) Multiple moles - follows with derm Mihaela Basurto MD CNOV Observed: 12/08/2017 Status: COMPLETED Source: [place] 3:40 PM [facility] REPOSITORY Office Visit (WOOB) LADAN SIDDIQI ([id number]) 1955 F Date Time Provider Department 12/08/17 3:40 PM MIHAELA BASURTO During your visit today, we recorded the following information about you: Blood pressure Weight Height 92/54 60.3 kg 1.651 m Mihaela Basurto MD 12/08/2017 5:01 PM Signed Ladan Siddiqi is a 62 year old who presents for her annual gynecologic exam without complaints. Postmenopausal: Yes Last Pap: 2016 normal HPV: 2016 negative History of abnormal pap: Yes - more than 20 years ago Last mammogram: 2017 normal History of abnormal mammogram: Yes Obstetric History T0 L2 SAB0 TAB0 Ectopic0 Multiple0 Live Births0 PAST MEDICAL HISTORY Diagnosis Date - Branch retinal vein occlusion of left eye 05/2010 PAST SURGICAL HISTORY Procedure Laterality Date - COLONOSCOP W/ OR W/O BRSH SPEC 2004 Colonoscopy - COLONOSCOP W/ OR W/O BRSH SPEC 06/21/14 Colonoscopy - DANDC, DIAG AND/OR THERAPEUTIC Dilation AND curettage - GASTRIC BYPASS HX 03/2016 - L'SCOPE DX W/WO BRUSHINGS/WASHINGS 1979 Laparoscopy - PAST SURGICAL HISTORY OF BREAST BIOPSY - SLING OPER STRES INCONTINENCE 09/05/14 and cystoscopy - VITRECTOMY,FOCAL LASER RX RETINA 05/2015 left eye FAMILY HISTORY Problem Relation Age of Onset - Colon Cancer Mother - Breast Cancer Mother 75 mastectomy - Breast Cancer Maternal Aunt SOCIAL HISTORY Social History Substance Use Topics - Smoking status: Former Smoker Packs/day: 1.50 Years: 36.00 - Smokeless tobacco: Never Used Comment: started at age 14; quit 2005 - Alcohol use No REVIEW OF SYSTEMS Abdomen: No abdominal pain, nausea, vomiting, diarrhea, or constipation. No bloating, early satiety, indigestion, or increased flatulence. Bladder: No dysuria, gross hematuria, urinary frequency, urinary urgency, or incontinence Breast: No breast lumps, nipple d/c, overlying skin changes, redness or skin retraction Allergies and current medication updated:Yes EXAM: Ht 5' 5 (1.65m) Wt 133 lb (60.3kg) LMP 05/02/2004 BMI 22.13 kg/(m2). GENERAL: pleasant, female in no apparent distress BREAST: soft, non-tender, symmetric, no dominant mass, normal nipple-areolar complex, no lymphadenopathy and no nipple discharge CHEST: Normal inspiratory effort ABDOMEN: soft, non-tender and no masses PELVIC: external genitalia normal, no vulvar lesions, no cervical lesions, normal appearing perineal body and perianal region BIMANUAL: uterus normal size, shape and consistency, no adnexal masses and non-tender RECTOVAGINAL: rectovaginal exam negative for any masses or nodularity. NEURO: alert and oriented x3,exam grossly non-focal EXTREMITIES: normal ASSESSMENT/PLAN: 1) Health maintenance: Pap/HPV up to date. Mammogram ordered Nutrition, exercise and routine health maintenance exams reviewed. Colon cancer screening: up to date with screening 2) Follow up one year or sooner as needed 3) Multiple moles - follows with derm Mihaela Basurto MD Referring Provider: SELF [200] Allergies As of Date: 12/08/2017 (No Known Allergies) Date Reviewed: 12/08/2017 Reviewed by: Mihaela Basurto - Fully Assessed Visit Diagnoses:Encounter for gynecological examination (general) (routine) without abnormal findings [Z01.419] Encounter for screening mammogram for breast cancer [Z12.31] Order(s):CHAY SCREENING [9222935] Order #: [id number] FUTURE CHAY SCREENING [[id number]] Order #: [id number] FUTURE Prescriptions as of 12/08/2017 Sig: ASCORBIC ACID (VITAMIN C) 1,0* VITAMIN C 1000 MG TABS BIOTIN 10,000 MCG CAPSULE TWICE A DAY CHOLECALCIFEROL (VITAMIN D3) * VITAMIN D3 1000 UNIT TABS CYANOCOBALAMIN (VIT B-12) 1,0* B-12 1000 MCG CAPS MULTIVITAMIN ORAL Take by mouth. PANTOPRAZOLE 40 MG TABLET,DEL* Take 40 mg by mouth once sy* Problem List As Of Date 12/08/2017 Noted Resolved Special screening for malignant neoplasm of the*INVALID FOR* JESSE (stress urinary incontinence, female) [N39.*INVALID FOR* Special screening for malignant neoplasms, colo*INVALID FOR*06/21/2014 Medications Discontinued During This Encounter aspirin 81 mg ORAL chewable tablet 12/08/2017 Class: Med Update Route: ORAL Sig: Take 81 mg by mouth once daily. Disc: Discontinued by Patient SERTRALINE HCL (ZOLOFT ORAL) 12/08/2017 Class: Historical Med Route: ORAL Sig: Take 10 mg by mouth once daily. Disc: Discontinued by Patient ibuprofen (MOTRIN) 800 mg tablet 12/08/2017 Class: Historical Med Route: ORAL Sig: Take 800 mg by mouth every 8 hours as needed. Disc: Discontinued by Patient atorvastatin (LIPITOR) 20 mg tablet 12/08/2017 Class: Historical Med Route: ORAL Sig: Take 20 mg by mouth once daily. Disc: Discontinued by Patient venlafaxine ER (EFFEXOR XR) 75 mg 24* 12/08/2017 Class: Historical Med Route: ORAL Sig: Take 75 mg by mouth once daily. Disc: Discontinued by Patient Disposition: Return in 1 year (on 12/08/2018) for Annual Exam. Follow-up and Disposition History Recorded Encounter Status:Closed by MIHAELA BASURTO MD on 12/08/17 CBC W/DIFF, AUTOMATED Collected: 10/26/2017 Status: F Source: [place] 1:52 PM [facility] REPOSITORY TYPE CODE TESTS RESULT OUT OF RANGE REFERENCE UNITS LAB L100.1000 4.4-11.0 K/mm3 Low WBC 3.6 LAB L100.1200 4.2-5.4 M/mm3 Low RBC 3.92 LAB L100.1300 12.0-15.0 g/dl Normal HGB 12.1 LAB L100.1400 37-47 % Low HCT 36.1 LAB L100.1500 81-99 fL Normal MCV 92.1 LAB L100.1600 27.0-32.0 pg Normal MCH 30.9 LAB L100.1700 32-36 g/gl Normal MCHC 33.5 LAB L100.1810 11.6-14.6 % Normal RDW CV 13.3 LAB L100.1820 35.1-43.9 fl High RDW SD 44.0 LAB L100.1900 150-450 K/mm3 Normal PLT 196 LAB L100.2000 6.2-12.0 fl Normal MPV 10.3 LAB L100.2100 47-70 % Normal NEUT% 47.7 LAB L100.2200 19-41 % High LY% 46.1 LAB L100.2300 0-10 % Normal MONO% 4.2 LAB L100.2400 0-5 % Normal EO% 1.7 LAB L100.2500 0-1 % Normal BASO% 0.3 LAB L100.2550 0.0-0.9 % Normal IM GRAN % 0.000 Result Comment: IG% - Immature Granulocytes (promyelocytes, myelocytes and metamyelocytes) > 1% indicates that a LEFT SHIFT is Present. LAB L100.2620 2.0-7.7 X10 3/uL Low Absolute Neut 1.7 LAB L100.2720 0.83-4.51 X10 3/ul Normal Absolute Lymph 1.66 Performed By: #### L100.0100 #### [facility] [address] [place], [place], [address] COMPREHENSIVE METABOLIC Collected: 09/19/2017 Status: F Source: [place] 6:34 AM [facility] REPOSITORY Order Comment: LIPID,CBC ARE IN PT'S EMP LABS Is Patient Taking Vitamins or Folic Acid Supplements? N TYPE CODE TESTS RESULT OUT OF RANGE REFERENCE UNITS LAB L501.0100 74-106 mg/dL Normal GLU 87 Result Comment: Please note revised GLUCOSE reference range effective 2017. LAB L501.1000 7-18 mg/dL Normal BUN 16 LAB L501.1100 0.55-1.02 mg/dL Normal CREAT,SERUM 0.69 Result Comment: The validity of the calculated GFR AND GFRAA in patients over 70 years has not been determined. Clinical correlation is essential. LAB L501.1110 >60 mL/min Normal EST GFR 92 Result Comment: Non- GFR Calc LAB L501.1115 >60 mL/min Normal EST GFR - AA 111 Result Comment: GFR Calc LAB L501.1300 10-20 RATIO High BUN/CRE 23.2 LAB L501.1500 6.4-8.2 g/dL T Normal PROT 7.1 LAB L501.1800 3.2-5.0 g/dL Normal ALB 3.8 LAB L501.1950 2.2-4.2 g/dL Normal GLOB 3.3 LAB L501.2000 0.9-2.4 RATIO Normal A/G 1.2 LAB L501.2200 8.5-10.1 mg/dL CA Normal 8.7 LAB L501.4100 15-37 U/L Normal AST 29 LAB L501.4305 45-117 U/L Normal ALK P 79 LAB L501.4405 13-56 U/L Normal ALT 35 LAB L501.4600 0.20-1.00 mg/dL T Normal BILI 0.70 LAB L501.5300 136-145 mmol/L High NA 146 LAB L501.5600 3.5-5.1 mmol/L K Normal 3.8 LAB L501.5900 98-107 mmol/L High CL 108 LAB L501.6100 21.0-32.0 mmol/L Normal CO2 32.0 LAB L501.6200 5-15 Normal GAP 6 Performed By: #### L500.4050, L501.5200, L503.6150, L503.6550, L506.0250 #### [facility] [address] [place], [address] MAGNESIUM Collected: 09/19/2017 Status: F Source: [place] 6:34 AM [facility] REPOSITORY Order Comment: LIPID,CBC ARE IN PT'S EMP LABS Is Patient Taking Vitamins or Folic Acid Supplements? N TYPE CODE TESTS RESULT OUT OF RANGE REFERENCE UNITS LAB L501.5200 1.6-2.6 mg/dL Normal MG 2.0 Performed By: #### L500.4050, L501.5200, L503.6150, L503.6550, L506.0250 #### [facility] [address] [place], [address] IRON Collected: 09/19/2017 Status: F Source: [place] 6:34 [facility] REPOSITORY Order Comment: LIPID,CBC ARE IN PT'S EMP LABS Is Patient Taking Vitamins or Folic Acid Supplements? N TYPE CODE TESTS RESULT OUT OF RANGE REFERENCE UNITS LAB L503.6150 50-170 ug/dL Normal IRON 115 Performed By: #### L500.4050, L501.5200, L503.6150, L503.6550, L506.0250 #### [facility] [address] [place], [address] FERRITIN Collected: 09/19/2017 Status: F Source: [place] 6:34 [facility] REPOSITORY Order Comment: LIPID,CBC ARE IN PT'S EMP LABS Is Patient Taking Vitamins or Folic Acid Supplements? N TYPE CODE TESTS RESULT OUT OF RANGE REFERENCE UNITS LAB L503.6550 8-252 ng/mL Normal FERRITIN 50 Performed By: #### L500.4050, L501.5200, L503.6150, L503.6550, L506.0250 #### [facility] [address] [place], [address] FOLATES, (FOLIC ACID) Collected: 09/19/2017 Status: F Source: [place] 6:34 [facility] REPOSITORY Order Comment: LIPID,CBC ARE IN PT'S EMP LABS Is Patient Taking Vitamins or Folic Acid Supplements? N TYPE CODE TESTS RESULT OUT OF RANGE REFERENCE UNITS LAB L506.0250 3.1-55.4 ng/mL Normal FOLATES 29.70 Performed By: #### L500.4050, L501.5200, L503.6150, L503.6550, L506.0250 #### [facility] [address] [place], [address] VITAMIN B12 Collected: 09/19/2017 Status: F Source: [place] 6:34 AM [facility] REPOSITORY Order Comment: LIPID,CBC ARE IN PT'S EMP LABS TYPE CODE TESTS RESULT OUT OF RANGE REFERENCE UNITS LAB L503.0105 211-911 pg/mL Normal Vitamin B12 723 Performed By: #### L503.0105, L506.1000 #### [facility] [address] [place], [place], [address] VITAMIN D,25 HYDROXY Collected: 09/19/2017 Status: F Source: [place] 6:34 AM [facility] REPOSITORY Order Comment: LIPID,CBC ARE IN PT'S EMP LABS TYPE CODE TESTS RESULT OUT OF RANGE REFERENCE UNITS LAB L506.1000 29.95-100.01 ng/mL Normal Vitamin D 56.3 25-OH Result Comment: Vitamin D 25(OH) Status Range Deficiency <20 ng/mL (50nmol/L) Insuffciency 20 - 30 ng/mL (50 - 75 nmol/L) Sufficiency 30 - 100 ng/mL (75 - 250 nmol/L) Toxicity >100 ng/mL (>250 nmol/L) Performed By: #### L503.0105, L506.1000 #### [facility] [address] [place], [address] VITAMIN B1, THIAMINE Collected: 09/19/2017 Status: F Source: [place] 6:34 AM [facility] REPOSITORY Order Comment: LIPID,CBC ARE IN PT'S EMP LABS TYPE CODE TESTS RESULT OUT OF RANGE REFERENCE UNITS LAB L3300.8000 66.5-200.0 nmol/L Normal VIT B1 130.2 Result Comment: This test was developed and its performance characteristics determined by [facility]. It has not been cleared or approved by the Food and Drug Administration. Performed By: #### L3300.8000, L3300.9900 #### [facility] (refer to report for specific site) refer to report for address and phone number ZINC, PLASMA OR Collected: 09/19/2017 Status: F Source: [place] 6:34 AM [facility] REPOSITORY Order Comment: LIPID,CBC ARE IN PT'S EMP LABS TYPE CODE TESTS RESULT OUT OF RANGE REFERENCE UNITS LAB L3300.9900 56-134 ug/dL Normal ZINC 75 Plasma/Ser Result Comment: Detection Limit = 5 Performed at: - [facility] [id number] International Account Executive: Kavon Bee MD, Phone: [phone] Performed By: #### L3300.8000, L3300.9900 #### [facility] (refer to report for specific site) refer to report for address and phone number NICOTINE URINE DRUG Collected: 09/19/2017 Status: F Source: [place] SCREEN 6:33 AM [facility] REPOSITORY TYPE CODE TESTS RESULT OUT OF RANGE REFERENCE UNITS LAB L505.6250 TO BE Normal CONFIRMED Result Comment: CONFIRMATORY TESTING FOR ALL POSITIVE URINE DRUG SCREEN RESULTS WILL ONLY BE SENT OUT UPON PHYSICIAN ORDER. The results of Urine Drug Screen methods provide only preliminary analytical test results. A more specific alternate chemical method must be used in order to obtain a confirmed analytical result. Gas chromatography/mass spectrometery (GC/MS) is the preferred confirmatory method. Clinical consideration and professional judgement should be applied to any drug of abuse test result, particularly when preliminary positive results are used. LAB L505.6270 <200 ng/mL Normal COT DRG Negative SCREEN Result Comment: Cotinine is the first-stage metabolite of Nicotine. Performed By: #### L505.6240 #### [facility] [address] [place], [place], [address] EMPLOYEE PROFILE Collected: 09/19/2017 Status: F Source: [place] 6:33 AM [facility] REPOSITORY TYPE CODE TESTS RESULT OUT OF RANGE REFERENCE UNITS LAB L501.0100 74-106 mg/dL Normal GLU 87 Result Comment: Please note revised GLUCOSE reference range effective 2017. LAB L501.1000 7-18 mg/dL Normal BUN 16 LAB L501.1100 0.55-1.02 mg/dL Normal CREAT,SERUM 0.65 Result Comment: The validity of the calculated GFR AND GFRAA in patients over 70 years has not been determined. Clinical correlation is essential. LAB L501.1110 >60 mL/min Normal EST GFR 98 Result Comment: Non- GFR Calc LAB L501.1115 >60 mL/min Normal EST GFR - AA 119 Result Comment: GFR Calc LAB L501.1300 10-20 RATIO High BUN/CRE 24.6 LAB L501.1400 2.6-6.0 mg/dL Normal URIC 3.6 Result Comment: The drugs N-Acetylcysteine and Metamizole may falsely depress this assay. LAB L501.1500 6.4-8.2 g/dL Normal T PROT 7.0 LAB L501.1800 3.2-5.0 g/dL Normal ALB 3.7 LAB L501.1950 2.2-4.2 g/dL Normal GLOB 3.3 LAB L501.2000 0.9-2.4 RATIO Normal A/G 1.1 LAB L501.2200 8.5-10.1 mg/dL Normal CA 8.7 LAB L501.2300 2.5-4.9 mg/dL Normal PHOS 3.8 LAB L501.4100 15-37 U/L Normal AST 34 LAB L501.4305 45-117 U/L Normal ALK P 83 LAB L501.4405 13-56 U/L Normal ALT 36 LAB L501.4600 0.20-1.00 mg/dL Normal T BILI 0.60 LAB L501.4700 0.00-0.30 mg/dL Normal D BILI 0.14 LAB L501.4900 200 mg/dL Normal CHOL 145 Result Comment: <200 mg/dL Desirable 200-240 mg/dL Borderline >240 mg/dL High Risk LAB L501.5000 mg/dL Normal TRIG 71 Result Comment: The drugs N-Acetylcysteine and Metamizole may falsely depress this assay. Serum Triglycerides Reference Interval Normal <150 mg/dL Borderline high 150 - 199 mg/dL High 200 - 499 mg/dL Very High > or = 500 mg/dL LAB L501.5300 136-145 mmol/L Normal NA 144 LAB L501.5600 3.5-5.1 mmol/L Normal K 3.9 LAB L501.5900 98-107 mmol/L Normal CL 107 LAB L501.6100 21.0-32.0 mmol/L Normal CO2 30.0 LAB L501.6200 5-15 Normal 7 GAP LAB L501.6400 mg/dL Normal HDL 57 Result Comment: The drugs N-Acetylcysteine and Metamizole may falsely depress this assay. Reference Range HDL <40 mg/dL Low HDL Cholesterol HDL >or= 60 mg/dL High HDL Cholesterol LAB L501.6475 Normal CHOL:HDL 2.50 LAB L501.6500 0-130 mg/dL Normal LDL 74 LAB L501.6600 5-40 mg/dL Normal VLDL 14 LAB L504.2610 84-246 U/L Normal LDH 206 Performed By: #### L500.2900 #### [facility] [address] [place], [place], [address] CBC, EMPLOYEE Collected: 09/19/2017 Status: F Source: [place] 6:33 AM [facility] REPOSITORY TYPE CODE TESTS RESULT OUT OF RANGE REFERENCE UNITS LAB L100.1000 4.4-11.0 K/mm3 Low WBC 3.7 LAB L100.1200 4.2-5.4 M/mm3 Normal RBC 4.21 LAB L100.1300 12.0-15.0 g/dl Normal HGB 13.2 LAB L100.1400 37-47 % Normal HCT 38.9 LAB L100.1500 81-99 fL Normal MCV 92.4 LAB L100.1600 27.0-32.0 pg Normal MCH 31.4 LAB L100.1700 32-36 g/gl Normal MCHC 33.9 LAB L100.1810 11.6-14.6 % Normal RDW CV 13.3 LAB L100.1820 35.1-43.9 fl High RDW SD 44.4 LAB L100.1900 150-450 K/mm3 Normal PLT 202 LAB L100.2000 6.2-12.0 fl Normal MPV 10.1 LAB L100.2110 47-70 % Normal NEUT% 50.6 LAB L100.2210 19-41 % High LY% 41.1 LAB L100.2310 0-10 % Normal MONO% 4.8 LAB L100.2410 0-5 % Normal EO% 3.2 LAB L100.2510 0-1 % Normal BASO% 0.3 LAB L100.2620 2.0-7.7 X10 3/uL Low Absolute Neut 1.9 LAB L100.2720 0.83-4.51 X10 3/ul Normal Absolute Lymph 1.53 Performed By: #### L100.0200 #### [facility] [address] [place], [place], [address] URINALYSIS, EMPLOYEE Collected: 09/19/2017 Status: F Source: [place] 6:33 AM [facility] REPOSITORY TYPE CODE TESTS RESULT OUT OF RANGE REFERENCE UNITS LAB L400.3000 Yellow COLOR Normal Yellow LAB L400.3050 Clear Normal CLARITY Sl. Cloudy LAB L400.3200 Normal mg/dl Normal GLUCOSE, UR Normal LAB L400.3300 Negative mg/dL High BILIRUBIN URINE 1 Result Comment: COLOR OF URINE MAY AFFECT DIPSTICK RESULTS. LAB L400.3400 Negative mg/dl Normal KETONE UR Negative LAB L400.3465 1.002-1.030 Normal SP.GR. DIPSTX 1.025 LAB L400.3550 5.0 - 8.0 pH Normal UR 6.0 LAB L400.3600 Negative mg/dl Normal PROT DIPSTX Negative LAB L400.3700 Normal mg/dl Normal UROBILI Normal LAB L400.3750 Negative Normal NITRITE UR Negative LAB L400.3780 Negative /ul Normal OCCULT Negative BLOOD-UR LAB L400.3800 Negative /ul High LEUK ESTERASE 25 Performed By: #### L400.0100 #### [facility] [address] [place], [address] ALLERGIES ALLERGIES DATE TYPE / CODE NAME / CODE REACTION SEVERITY SOURCE 11/05/2016 Drug No Known Unknown [facility] Allergy/416 Allergies/E62556 Hospital 177902(SNOM 0388(RXNORM) Repository ED CT) Drug NO KNOWN [facility] Class/13324 ALLERGIES Main [place] 1003(SNOMED Repository CT) ENCOUNTERS ENCOUNTERS ADMIT/DISCHARGE ACCOUNT NUMBER ADMITTING ENCOUNTER LOCATION SOURCE CLASS 05/19/2018 [id number] [facility] Repository 04/24/2018 [id number] [facility] ding:LAB.FUT Repository URE 04/19/2018 [id number] [facility] ding:LAB.FUT Repository URE 04/14/2018 [id number] [facility] Repository 04/13/2018 [id number] [facility] ding:LAB Repository 03/17/2018 [id number] [facility] Repository 01/11/2018 [id number] Ambulatory BMSBuilding: Cecile BMS.[facility] Repository 01/04/2018/01/05/20 [id number] Ambulatory [address] Repository 01/04/2018/01/05/20 [id number] Ambulatory [address] Repository 12/19/2017/12/20/19 [id number] Ambulatory [address] Repository 12/08/2017/12/10/19 [id number] Ambulatory [address] Repository 10/26/2017 [id number] Ambulatory [facility] ding:LAB Repository 09/23/2017 [id number] Ambulatory [facility] Repository 09/19/2017 [id number] Ambulatory [facility] ding:EMPH Repository 09/19/2017 [id number] Ambulatory [facility] ding:LAB Repository PAYERS PAYERS ENCOUNTER GUARANTOR PAYER SUBSCRIBER SOURCE 05/19/2018 Ladan Garcia Primary Ladan K [facility] [place]DOB: [facility] [id number] [facility] [id number] Repository [place] Number: Effective [place], [place] Date: [address]Slo: () 05/19/2018 Secondary Ladan [facility] Insurance:Medical TiffinDOB: [facility] [id number] Repository Number: Effective Date: 04/24/2018 LADAN Garcia Primary Insurance:[facility] LADAN Huber [id number] [facility] [id number] Number: Repository [id number]: [phone] [id number] [phone] (HP) Date:1298-00-24TH [address] [address], [place] [address]AD: CHECK WEBSITE 04/24/2018 Secondary [facility] Insurance:SELF PAY [facility] Number: Effective Repository Date:2018-04-19 04/19/2018 LADAN Garcia Primary Insurance:[facility] LADAN Faustinjane [id number] [facility] [id number] Number: Repository [id number]: [phone] [id number] [phone] (HP) Date:7171-92-13BE [address] [address], [place] [address]JN: CHECK WEBSITE 04/19/2018 Secondary NOT GIVENUNK Sheldon Insurance:SELF PAY [facility] Number: Effective Repository Date:2018-04-19 04/14/2018 Ladan K [facility]Medical [place]OB: System [facility] [id number] Repository [place] Number: Effective [place], [place] Date: [address]Jzp: (HP) 04/13/2018 LADAN K Primary Insurance:[facility] LADAN Garcia Sheldon [id number] [facility] [id number] Number: Repository [address]Aep: 330 [id number] [phone] (HP) Date:2237-49-66KR [address] [address], [place] [address]HK: CHECK WEBSITE 04/13/2018 Secondary NOT GIVENUNK Cecile Insurance:SELF PAY [facility] Number: Effective Repository Date:2018-04-13 03/17/2018 Ladan K Primary [facility]an K [facility] MorrisDOB: Insurance:Medical MorrisDOB: System [facility] [id number] Repository [place] Number: Effective [place], [place] Date: [id number]: (HP) 01/11/2018 LADAN K Primary Insurance:[facility] LADAN Garcia Cecile [id number] [facility]: [facility] [id number] Number: Repository [id number]: [phone] [id number] [phone] (HP) Date:8530-41-47GR [address] [address]BHPNOJJBC, [place] [address]GN: CHECK WEBSITE 01/11/2018 Secondary NOT GIVENUNK Cecile Insurance:SELF PAY [facility] Number: Effective Repository Date:2017-10-20 10/26/2017 LADAN Garcia Primary Insurance:[facility] LADAN JAIME7 [facility] [id number] [place] Number: Repository [address]Wjq: 330 [id number] [phone] (HP) Date:8390-05-36NU [address] [address]NEFZQYCP[place], [place] [address]NG: CHECK WEBSITE 10/26/2017 Secondary NOT GIVENUNK Sheldon Insurance:SELF PAY [facility] Number: Effective Repository Date:2017-10-26 09/23/2017 Ladan Garcia [facility] [id number] [facility] [id number] Repository [place] Number: Effective [place], [place] Date: [address]Yih: (HP) 09/19/2017 Ladan Garcia Primary NOT GIVENUNK Sheldon [id number] Insurance:SELF PAY [place], [place] Number: Effective Repository [address]Tjw: [phone]) Date:2017-09-19 [phone] (HP) 09/19/2017 Ladan K Primary Insurance:[facility] Ladan [id number] [facility] [id number].[facility] [place] Number: Repository [id number]: [phone] [id number] [phone] (HP) Date:6987-73-07CS [address] [address]IPEFNTPJS, [place] [address]CZ: CHECK WEBSITE 09/19/2017 Secondary NOT GIVENUNK Sheldon Insurance:SELF PAY [facility] Number: Effective Repository Date:2017-09-19
== END ==
PROVIDERS: Family Provider Family Medicine; PCP Family Medicine
DX: K90.9 Intestinal malabsorption, unspecified (principal)
CPT/HCPCS: 36415; 80053; 80061; 82728; 82746; 83540; 83735

== ENCOUNTER → 2018-04-24 09:32 | Outpatient (CLI) | payer OTHER, SELFPAY ==
[2018-04-24 10:18] LABS: Hematocrit 38.7 % (37-47); Hemoglobin 12.9 g/dl (12.0-15.0); Mean Corp Hgb Conc 33.3 g/gl (32-36); Mean Corpuscular Hgb 30.8 pg (27.0-32.0); Mean Corpuscular Volume 92.4 fL (81-99); Platelet Count 205 K/mm3 (150-450); RBC Distribution Width CV 13.4 % (11.6-14.6); RBC Distribution Width SD 45.2 fl (35.1-43.9); Red Blood Count 4.19 M/mm3 (4.2-5.4)
[2018-04-24 10:19] LABS: Scan Indicated on CBC? Y/N NO
[2018-04-24 11:39] LABS: Vitamin B12 644 pg/mL (211-911); Vitamin D,25 Hydroxy 38.6 ng/mL (29.95-100.01)
[2018-04-24 11:48] LABS: Cholesterol 138 mg/dL (200); Ferritin 36 ng/mL (8-252); High Density Lipoprotein 54 mg/dL; Magnesium 1.9 mg/dL (1.6-2.6); Triglycerides 104 mg/dL; Very Low Density Lipoprotein 21 mg/dL (5-40)
[2018-04-30 13:40] LABS: Vitamin B1, Thiamine 149.5 nmol/L (66.5-200.0); Zinc, Plasma or Serum 76 ug/dL (56-134)
== END ==
PROVIDERS: Family Provider Family Medicine; PCP Family Medicine
DX: K90.9 Intestinal malabsorption, unspecified (principal); D72.819 Decreased white blood cell count, unspecified; Z13.220 Encounter for screening for lipoid disorders
CPT/HCPCS: 36415; 80061; 82306; 82607; 82728; 82746; 83735; 84425; 84630; 85027

== ENCOUNTER → 2018-06-30 13:58 | Outpatient (CLI) | payer OTHER, SELFPAY ==
--- NOTE | 2018-06-30 14:04 | BI_ITS ---
MAMMOGRAPHY - UNILATERAL DIAGNOSTIC: RIGHT BREAST REASON FOR EXAM: Female, 63 years old. Six-month follow-up examination. PERTINENT HISTORY: Mother with breast cancer. Prior left ultrasound-guided breast biopsy. TECHNIQUE: Digital unilateral breast mukund (3D mammographic acquisition) in the CC and MLO projections. 2-D mediolateral oblique (MLO) and craniocaudad (CC) views of both breasts were obtained. CAD: Full Field Digital Mammography with Computer Added Detection was performed. COMPARISON: Comparison is made with prior examination December 19, 2017. FINDINGS: Breast Composition: The breasts are heterogeneously dense, which may obscure small masses. There are no dominant masses or suspicious calcifications. No other significant abnormalities are identified. There has been no significant change since the prior study. BI/DIAG MAMM W/CAD, UNILAT IMPRESSION: Stable unilateral diagnostic mammogram. One year follow-up mammogram recommended. (A) ASSESSMENT CATEGORY: BIRADS Category 1: Negative. A letter regarding these results will be sent to the patient by the facility within 30 days. Approximately 10% of breast cancers are not detected by mammography. A normal mammogram should not delay biopsy of a clinically suspicious abnormality. Electronically Signed: Ritchie Jackson, at 15:36 EST , Service support ,
--- NOTE | 2018-06-30 14:04 | US_ITS ---
STUDY: ULTRASOUND BREAST - RIGHT REASON FOR EXAM: Female, 63 years old. Six-month follow-up. History of cysts on prior ultrasound. TECHNIQUE: Axial and longitudinal images of the RIGHT breast were performed with a high resolution ultrasound transducer. COMPARISON: Comparison is made with prior mammogram done earlier today. Comparison also made to prior outside ultrasound dated January 04, 2018. FINDINGS: RIGHT Breast: There is a 4 mm x 3 mm x 3 mm cyst at the 1:00 position of the breast at 1 cm from nipple. Low-level echoes are seen within it. There is also evidence of a 3 mm x 3 mm x 2 mm cyst at the 2:00 position breast at 2 cm from nipple. Low-level echoes are seen within as well. There is also evidence of a 4 mm x 5 mm x 4 mm cyst with low-level echoes at the 3:00 position of the breast at 1 cm from the nipple. These have decreased in size as compared to prior study. US/Breast Limited Unilateral IMPRESSION: Decreased size of the 3 cysts in the breast. ASSESSMENT CATEGORY: BIRADS Category 2: Benign. A letter regarding these results will be sent to the patient by the facility within 30 days. Electronically Signed: Ritchie Jackson, at 15:43 EST , Service support ,
== END ==
PROVIDERS: Family Provider Family Medicine; PCP Family Medicine; Referring Provider Nurse Practitioner Family; Visit Provider Nurse Practitioner Family
DX: R92.8 Other abnormal and inconclusive findings on diagnostic imaging of breast (principal)
CPT/HCPCS: 76642; 77061; 77065; G0279

== ENCOUNTER → 2018-07-25 15:00 | Outpatient (CLI) | payer OTHER, SELFPAY ==
[2018-07-25 14:35] VITALS: BMI 23.4
--- NOTE | 2018-07-25 15:01 | CT_ITS ---
STUDY: LOW DOSE CT LUNG CANCER SCREENING REASON FOR EXAM: Female, 63 years old. 42 pack-year history of smoking. RADIATION DOSAGE (If Supplied By Facility): CTDIvol = ( 2.01 ) mGy, DLP = ( 61.17 ) mGycm TECHNIQUE: No contrast was administered. Low dose technique was utilized (average mAS-38 and kVp 120). 1.25 mm axial source images with a slice interval of 1.25-mm were reconstructed in lung windows. 2.5 mm axial source images with a slice interval of 2.5-mm were reconstructed in lung windows. 5.0 mm axial source images with a slice interval of 5.0-mm were reconstructed in soft tissue windows. Nodule measured using lung windows on PACS and/or independent workstation with automated measurement of minimum and maximum diameter. Nodule measurement reported as average diameter rounded to the nearest whole number. Growth is defined as an increase ins size of greater than 1.5 mm. COMPARISON: None. NODULES: No nodular densities are seen. Emphysema: Mild linear scarring in the posterior medial segment of the right lower lobe as well as at the lung apices. Aorta: Atherosclerotic calcification of the aortic arch. Coronary arteries: Coronary artery calcification. Calcification of the aortic valve. Mediastinal nodes: Small nonsignificant mediastinal lymph nodes. Other chest and abdominal findings: Degenerative changes of the thoracic spine. CT/Low Dose CT Lung Screening IMPRESSION: Lung-RADS category 2 - Continue annual screening with LDCT in 12 months. IMPORTANT NOTES FOR USE: ACR Lung-RADS Version 1.0 Assessment Categories Release Date: August 27, 2013 Category: Coded 0-4 bases on nodule(s) with highest degree of suspicion. Negative screen is defined as categories 1 and 2; a positive screen is defined as categories 3 and 4. Category 3 and 4A nodules that are unchanged on interval CT should be coded as category 2, and individuals returned to screening in 12 months. Category 4X: Category 3 or 4 nodules with additional imaging findings that increase the suspicion of lung cancer, such as spiculation, GGN that doubles in size in 1 year, enlarged lymph notes, etc. Category Modifiers: S (significant finding unrelated to lung cancer) and C (prior history of treated lung cancer) may be added to the 0-4 Lung-RADS Electronically Signed: Ritchie Jackson, at 15:49 EDT , Service support ,
== END ==
PROVIDERS: Family Provider Family Medicine; PCP Family Medicine; Referring Provider Nurse Practitioner Family; Visit Provider Nurse Practitioner Family
DX: Z12.2 Encounter for screening for malignant neoplasm of respiratory organs (principal); Z87.891 Personal history of nicotine dependence
CPT/HCPCS: G0297

== ENCOUNTER → 2018-09-16 11:10 | Outpatient (CLI) | payer OTHER, SELFPAY ==
[2018-07-25 14:35] VITALS: BMI 23.4
[2018-09-16 13:15] LABS: AST(SGOT) 80 U/L (15-37); Alanine Aminotransfer ALT/SGPT 64 U/L (13-56); Albumin, Serum 3.7 g/dL (3.2-5.0); Alkaline Phosphatase 125 U/L (45-117); Bilirubin, Direct 0.13 mg/dL (0.00-0.30); Globulin 3.6 g/dL (2.2-4.2); Lipase 459 U/L (73-393); Protein, Total 7.3 g/dL (6.4-8.2)
== END ==
PROVIDERS: Family Provider Family Medicine; PCP Family Medicine; Referring Provider Internal Medicine Gastroenterology; Visit Provider Internal Medicine Gastroenterology
DX: R10.9 Unspecified abdominal pain (principal)
CPT/HCPCS: 36415; 80076; 83690

== ENCOUNTER → 2018-09-19 07:58 | Outpatient (CLI) | payer OTHER, SELFPAY ==
[2018-07-25 14:35] VITALS: BMI 23.4
[2018-09-19 10:53] LABS: AST(SGOT) 23 U/L (15-37); Alanine Aminotransfer ALT/SGPT 36 U/L (13-56); Albumin, Serum 3.5 g/dL (3.2-5.0); Alkaline Phosphatase 107 U/L (45-117); Bilirubin, Direct 0.11 mg/dL (0.00-0.30); Globulin 3.6 g/dL (2.2-4.2); Lipase 1720 U/L (73-393); Protein, Total 7.1 g/dL (6.4-8.2)
== END ==
PROVIDERS: Family Provider Family Medicine; PCP Family Medicine; Referring Provider Internal Medicine Gastroenterology; Visit Provider Internal Medicine Gastroenterology
DX: R10.9 Unspecified abdominal pain (principal)
CPT/HCPCS: 36415; 80076; 83690

== ENCOUNTER → 2018-09-23 10:50 | Outpatient (CLI) | payer OTHER, SELFPAY ==
[2018-07-25 14:35] VITALS: BMI 23.4
[2018-09-23 11:40] LABS: AST(SGOT) 34 U/L (15-37); Alanine Aminotransfer ALT/SGPT 37 U/L (13-56); Albumin, Serum 3.7 g/dL (3.2-5.0); Alkaline Phosphatase 114 U/L (45-117); Bilirubin, Direct 0.14 mg/dL (0.00-0.30); Globulin 3.7 g/dL (2.2-4.2); Lipase 555 U/L (73-393); Protein, Total 7.4 g/dL (6.4-8.2)
== END ==
PROVIDERS: Family Provider Family Medicine; PCP Family Medicine; Referring Provider Internal Medicine Gastroenterology; Visit Provider Internal Medicine Gastroenterology
DX: R10.9 Unspecified abdominal pain (principal)
CPT/HCPCS: 36415; 80076; 83690

== ENCOUNTER → 2018-09-28 12:44 | Outpatient (CLI) | payer OTHER, SELFPAY ==
[2018-07-25 14:35] VITALS: BMI 23.4
--- NOTE | 2018-09-28 12:45 | CT_ITS ---
STUDY: CT ABDOMEN AND PELVIS WITH CONTRAST REASON FOR EXAM: Female, 63 years old. Pancreatitis. Kaycee-en-Y gastric bypass. RADIATION DOSAGE (If Supplied By Facility): CTDIvol = ( 10.28 ) mGy, DLP = ( 474.43 ) mGycm TECHNIQUE: Transaxial images were obtained from the dome of the diaphragm to the symphysis pubis without oral contrast. 100ML IV/Oral Isovue 300 was administered. Sagittal and coronal images were reconstructed. Individualized dose optimization techniques were used for this CT. COMPARISON: November 12, 2015 FINDINGS: The visualized lung bases are unremarkable. There are coronary artery calcifications present. There is mild intra and extrahepatic ductal dilatation present. There is a low-attenuation focus within the segment 4 of the liver there is a low-attenuation focus consistent with focal fat. There are surgical clips in the gallbladder fossa consistent with a prior cholecystectomy. Normal spleen. There is a 3.4 mm low-attenuation focus within the tail of the pancreas. Normal bilateral adrenal glands. Normal right kidney. There is a cyst arising from the upper pole the left kidney. There are too small to characterize low-attenuation foci within the left kidney. There is evidence of a prior gastric bypass. There are anastomotic sutures noted within the region of the ileum. There are diverticula within the sigmoid colon. The appendix is visualized and appears normal. There is diffuse atherosclerotic calcification of the abdominal aorta, without a demonstrated aneurysm. Normal inferior vena cava. Normal retroperitoneum. Normal urinary bladder. Normal abdominal wall. There are diffuse degenerative changes of the visualized lumbar spine. CT/Abdomen/Pelvis WITH Contrast IMPRESSION: Colonic diverticulosis. Atherosclerosis. 3.4 mm low-attenuation focus within the pancreatic tail which may reflect an underlying cyst or possible intraductal papillary mucinous neoplasm, consider MRI for further characterization. Mild intra and extrahepatic ductal dilatation. Electronically Signed: Maya Adhikari MD at 16:57 EDT Tel , Service support ,
== END ==
PROVIDERS: Family Provider Family Medicine; PCP Family Medicine; Referring Provider Internal Medicine Gastroenterology; Visit Provider Internal Medicine Gastroenterology
DX: K85.90 Acute pancreatitis without necrosis or infection, unspecified (principal)
CPT/HCPCS: 74177; Q9967

== ENCOUNTER → 2018-11-13 14:30 | Outpatient (CLI) | payer OTHER, SELFPAY ==
[2018-07-25 14:35] VITALS: BMI 23.4
[2018-11-13 15:51] LABS: AST(SGOT) 26 U/L (15-37); Alanine Aminotransfer ALT/SGPT 64 U/L (13-56); Albumin, Serum 3.7 g/dL (3.2-5.0); Alkaline Phosphatase 148 U/L (45-117); Bilirubin, Direct 0.14 mg/dL (0.00-0.30); Globulin 3.4 g/dL (2.2-4.2); Lipase 1103 U/L (73-393); Protein, Total 7.1 g/dL (6.4-8.2)
== END ==
PROVIDERS: Family Provider Family Medicine; PCP Family Medicine; Referring Provider Internal Medicine Gastroenterology; Visit Provider Internal Medicine Gastroenterology
DX: R10.9 Unspecified abdominal pain (principal)
CPT/HCPCS: 36415; 80076; 83690

== ENCOUNTER → 2018-11-23 06:21 | Outpatient (CLI) | payer OTHER, SELFPAY ==
[2018-07-25 14:35] VITALS: BMI 23.4
--- NOTE | 2018-11-23 06:33 | MRI_ITS ---
STUDY: MRI ABDOMEN WITH AND WITHOUT CONTRAST REASON FOR EXAM: Female, 63 years old. Evaluate pancreatic cyst TECHNIQUE: Standardized fat and water weighted pulse sequences were obtained in all 3 orthogonal planes post contrast administration. 11 IV Dotarem was administered for the contrast portion of the examination. COMPARISON: CT abdomen and pelvis 09/28/2018. FINDINGS: The visualized lung bases are unremarkable. The visualized portions of the heart are within normal limits. Normal liver. There are surgical clips in the gallbladder fossa consistent with a prior cholecystectomy. There is no intrahepatic or extra hepatic biliary ductal dilatation. There is no filling defect. Normal spleen. There is a 7 x 3 mm nonenhancing cyst in the distal pancreatic body/tail. This does not definitely communicate with the main pancreatic duct. There is a 5 mm pancreatic head cyst without enhancement which appears to communicate with the main pancreatic duct.. Normal bilateral adrenal glands. There is a 1.8 x 1.9 cm left renal upper pole nonenhancing cyst with small amount of layering hemorrhagic material . There are scattered nonenhancing simple left renal cysts and a subcentimeter right renal midpole T2 and T1 hypointense nonenhancing lesion which may represent a small hemorrhagic cyst. No hydronephrosis. Normal visualized stomach. Normal small intestine. Normal colon. The appendix is visualized and appears normal. Normal abdominal aorta. Normal inferior vena cava. Normal retroperitoneum. Normal abdominal wall. Normal osseous structures. MRI/MRI Abd WITH and W/O Contrast IMPRESSION: There is a 7 x 3 mm nonenhancing cyst in the distal pancreatic body/tail. This does not definitely communicate with the main pancreatic duct and may represent pseudocyst or cystic neoplasm. There is a 5 mm pancreatic head cyst which appears to communicate with the main pancreatic duct consistent with IPMN.. Electronically Signed: Kacie Quevedo, at 15:14 EDT Tel , Service support ,
[2018-11-27 07:37] LABS: CREATININE FINGERSTICK 0.62 mg/dL (0.55-1.02); EGFR FINGERSTICK > 60 mL/min (>60)
== END ==
PROVIDERS: Family Provider Family Medicine; PCP Family Medicine
DX: K85.00 Idiopathic acute pancreatitis without necrosis or infection (principal)
CPT/HCPCS: 74183; A9575

== ENCOUNTER → 2019-01-18 07:07 | Outpatient (CLI) | payer OTHER, SELFPAY ==
[2018-07-25 14:35] VITALS: BMI 23.4
--- NOTE | 2019-01-18 07:09 | BI_ITS ---
MAMMOGRAPHY - BILATERAL SCREENING REASON FOR EXAM: Female, 63 years old. Routine annual screening examination. PERTINENT HISTORY: Mother with breast cancer. Aunt with breast cancer. Remote left ultrasound-guided breast biopsy. TECHNIQUE: Digital bilateral breast marc (3D mammographic acquisition) in the CC and MLO projections. 2-D mediolateral oblique (MLO) and craniocaudad (CC) views of both breasts were obtained. CAD: Full Field Digital Mammography with Computer Added Detection was performed. COMPARISON: Comparison is made with prior examination December 19, 2017 and June 30, 2018. FINDINGS: Breast Composition: The breasts are heterogeneously dense, which may obscure small masses. There are no dominant masses or suspicious calcifications. No other significant abnormalities are identified. There has been no significant change since the prior study. BI/SCREEN MAMM (CAD) W/MARC BILAT IMPRESSION: Stable bilateral screening mammogram. Yearly follow-up mammogram recommended. (A) ASSESSMENT CATEGORY: BIRADS Category 1: Negative. A letter regarding these results will be sent to the patient by the facility within 30 days. Approximately 10% of breast cancers are not detected by mammography. A normal mammogram should not delay biopsy of a clinically suspicious abnormality. [id number] Electronically Signed: Ritchie Jackson, at 9:03 EDT , Service support ,
== END ==
PROVIDERS: Family Provider Family Medicine; PCP Family Medicine; Referring Provider Obstetrics & Gynecology; Visit Provider Obstetrics & Gynecology
DX: Z12.31 Encounter for screening mammogram for malignant neoplasm of breast (principal)
CPT/HCPCS: 77063; 77067

== ENCOUNTER → 2019-04-10 07:48 | Outpatient (CLI) | payer OTHER, SELFPAY ==
[2018-07-25 14:35] VITALS: BMI 23.4
[2019-04-10 10:11] LABS: Absolute Lymphocyte Count 0.57 X10^3/uL (0.83-4.51); Absolute Neutrophil Count 1.6 X10^3/uL (2.0-7.7); Basophil# 0.01 X10^3/uL; Basophil% 0.4 % (0-1); Eosinophil# 0.09 X10^3/uL; Eosinophils% 3.5 % (0-5); Hematocrit 36.9 % (37-47); Hemoglobin 12.1 g/dL (12.0-15.0); Lymphocyte # 0.57 X10^3/ul (4.0); Lymphocyte % 22.3 % (19-41); Mean Corp Hgb Conc 32.8 g/dL (32-36); Mean Corpuscular Hgb 28.7 pg (27.0-32.0); Mean Corpuscular Volume 87.4 fL (81-99); Mean Platelet Vol. 10.9 fl (6.2-12.0); Monocyte# 0.25 X10^3/uL; Monocyte% 9.8 % (0-10); NRBC Flagged by Analyzer 0 % (0-5); Neutrophil # 1.63 X10^3/uL (2.7-7.7); Neutrophil % 63.6 % (47-70); POSITIVE DIFFERENTIAL YES; Platelet Count 204 K/mm3 (150-450); RBC Distribution Width CV 13.6 % (11.6-14.6); RBC Distribution Width SD 43.5 fl (35.1-43.9); Red Blood Count 4.22 M/mm3 (4.2-5.4); White Blood Count 2.6 K/mm3 (4.4-11.0)
[2019-04-10 10:14] LABS: Differential Indicated SCAN CRITERIA MET
[2019-04-10 10:53] LABS: Vitamin B12 > 2000 pg/mL (211-911); Vitamin D,25 Hydroxy 33.4 ng/mL (29.95-100.01)
[2019-04-10 10:54] LABS: ALB/GLOB Ratio 1.1 RATIO (0.9-2.4); AST(SGOT) 1161 U/L (15-37); Alanine Aminotransfer ALT/SGPT 750 U/L (13-56); Albumin, Serum 3.8 g/dL (3.2-5.0); Alkaline Phosphatase 354 U/L (45-117); Anion Gap 2 (5-15); BUN 17 mg/dL (7-18); BUN/Creat Ratio 22.3 RATIO (10-20); Calcium,Total 8.9 mg/dL (8.5-10.1); Chloride 107 mmol/L (98-107); Cholesterol 149 mg/dL (200); Creatinine, Serum 0.76 mg/dL (0.55-1.02); EST Glomerular Filtration Rate 81 mL/min (>60); Est Glom Filt Rate - Afr Amer 98 mL/min (>60); Ferritin 94 ng/mL (8-252); Globulin 3.6 g/dL (2.2-4.2); Glucose 100 mg/dL (74-106); High Density Lipoprotein 59 mg/dL; Iron 58 ug/dL (50-170); Magnesium 1.9 mg/dL (1.6-2.6); Potassium 4.6 mmol/L (3.5-5.1); Protein, Total 7.4 g/dL (6.4-8.2); Sodium Level 139 mmol/L (136-145); Triglycerides 69 mg/dL; Very Low Density Lipoprotein 14 mg/dL (5-40)
[2019-04-11 15:22] LABS: Pathologist Review Reviewed
[2019-04-17 05:06] LABS: Vitamin B1, Thiamine 124.3 nmol/L (66.5-200.0)
[2019-04-17 16:28] LABS: Zinc, Plasma or Serum 69 ug/dL (56-134)
== END ==
PROVIDERS: Family Provider Family Medicine; PCP Family Medicine
DX: D72.819 Decreased white blood cell count, unspecified (principal); K90.9 Intestinal malabsorption, unspecified; Z13.220 Encounter for screening for lipoid disorders
CPT/HCPCS: 36415; 80053; 80061; 82306; 82607; 82728; 82746; 83540; 83735; 84425; 84630; 85025

== ENCOUNTER → 2019-04-20 07:29 | Outpatient (CLI) | payer OTHER, SELFPAY ==
[2018-07-25 14:35] VITALS: BMI 23.4
[2019-04-20 10:15] LABS: ALB/GLOB Ratio 1.1 RATIO (0.9-2.4); AST(SGOT) 22 U/L (15-37); Alanine Aminotransfer ALT/SGPT 54 U/L (13-56); Albumin, Serum 3.6 g/dL (3.2-5.0); Alkaline Phosphatase 153 U/L (45-117); Anion Gap 4 (5-15); BUN 15 mg/dL (7-18); Calcium,Total 8.6 mg/dL (8.5-10.1); Chloride 107 mmol/L (98-107); Creatinine, Serum 0.79 mg/dL (0.55-1.02); EST Glomerular Filtration Rate 78 mL/min (>60); Est Glom Filt Rate - Afr Amer 95 mL/min (>60); Globulin 3.4 g/dL (2.2-4.2); Glucose 90 mg/dL (74-106); Potassium 3.4 mmol/L (3.5-5.1); Sodium Level 142 mmol/L (136-145)
[2019-04-21 06:16] LABS: HEPATITIS B SURFACE AG Negative (Negative); Hepatitis A IgM Antibody Negative (Negative); Hepatitis B Core AB IgM Negative (Negative)
[2019-04-21 13:28] LABS: Hep C Antibodies <0.1 s/co ratio (0.0-0.9)
== END ==
PROVIDERS: Family Provider Family Medicine; PCP Family Medicine; Referring Provider Registered Nurse Nephrology; Visit Provider Registered Nurse Nephrology
DX: R94.5 Abnormal results of liver function studies (principal)
CPT/HCPCS: 36415; 80053; 80074

== ENCOUNTER → 2019-10-16 13:33 | Outpatient (CLI) | payer OTHER, SELFPAY ==
[2018-07-25 14:35] VITALS: BMI 23.4
[2019-10-16 13:08] VITALS: BMI 23.4
--- NOTE | 2019-10-16 13:33 | CT_ITS ---
STUDY: LOW DOSE CT LUNG CANCER SCREENING REASON FOR EXAM: Female, 64 years old. LUNG SCREEN, 1-2 PPD X 35 YRS, NO CURRENT CHEST COMPLAINTS, QUIT SMOKING 11 YRS AGO, YB=760 RADIATION DOSAGE (If Supplied By Facility): CTDIvol = ( 1.7 ) mGy, DLP = ( 53.18 ) mGycm TECHNIQUE: No contrast was administered. Low dose technique was utilized (average mAS-38 and kVp 120). 1.25 mm axial source images with a slice interval of 1.25-mm were reconstructed in lung windows. 2.5 mm axial source images with a slice interval of 2.5-mm were reconstructed in lung windows. 5.0 mm axial source images with a slice interval of 5.0-mm were reconstructed in soft tissue windows. Nodule measured using lung windows on PACS and/or independent workstation with automated measurement of minimum and maximum diameter. Nodule measurement reported as average diameter rounded to the nearest whole number. Growth is defined as an increase ins size of greater than 1.5 mm. COMPARISON: Comparison is made with prior examination dated July 25, 2018. NODULES: No suspicious nodules are seen. Emphysema: Mild degree of emphysematous changes. Bilateral apical linear scarring. Minimal increased markings in the posterior medial segment of the right lower lobe suggestive of scarring with mild bronchiectasis. Aorta: Atherosclerotic plaque of the aortic arch. Coronary arteries: Coronary artery calcification. Mediastinal nodes: Small mediastinal lymph nodes. Other chest and abdominal findings: There is evidence of prior subtotal gastrectomy. CT/Low Dose CT Lung Screening IMPRESSION: Lung-RADS category 2 - Continue annual screening with LDCT in 12 months. IMPORTANT NOTES FOR USE: ACR Lung-RADS Version 1.0 Assessment Categories Release Date: August 27, 2013 Category: Coded 0-4 bases on nodule(s) with highest degree of suspicion. Negative screen is defined as categories 1 and 2; a positive screen is defined as categories 3 and 4. Category 3 and 4A nodules that are unchanged on interval CT should be coded as category 2, and individuals returned to screening in 12 months. Category 4X: Category 3 or 4 nodules with additional imaging findings that increase the suspicion of lung cancer, such as spiculation, GGN that doubles in size in 1 year, enlarged lymph notes, etc. Category Modifiers: S (significant finding unrelated to lung cancer) and C (prior history of treated lung cancer) may be added to the 0-4 Lung-RADS Electronically Signed: Ritchie Jackson, at 14:10 EDT , Service support ,
== END ==
PROVIDERS: PCP Family Medicine; Referring Provider Nurse Practitioner Family; Visit Provider Nurse Practitioner Family
DX: Z12.2 Encounter for screening for malignant neoplasm of respiratory organs (principal); Z87.891 Personal history of nicotine dependence
CPT/HCPCS: G0297

== ENCOUNTER → 2019-10-30 08:36 | Outpatient (CLI) | payer OTHER, SELFPAY ==
[2019-10-16 13:08] VITALS: BMI 23.4
[2019-10-30 09:50] LABS: Platelet Count 206 K/mm3 (150-450); RET-HE 30.9 pg (30-35); Reticulocyte Count 0.85 % (0.5-1.5)
[2019-10-30 10:22] LABS: Ferritin 6 ng/mL (8-252); Iron 63 ug/dL (50-170); Iron Binding Capacity,Total 461 ug/dL (250-450)
== END ==
PROVIDERS: PCP Family Medicine; Visit Provider Family Medicine
DX: D64.9 Anemia, unspecified (principal)
CPT/HCPCS: 36415; 82728; 83540; 83550; 85045

== ENCOUNTER 2020-01-16 09:50 | Outpatient (RCR) | payer OTHER, SELFPAY ==
[2019-11-28 12:49] VITALS: BMI 22.6
== END 2020-01-16 10:00 | disposition home or self-care (01) ==
LOC: EMPH 09:50
PROVIDERS: PCP Family Medicine; Referring Provider Family Medicine Geriatric Medicine; Visit Provider Family Medicine Geriatric Medicine
DX: Z11.59 Encounter for screening for other viral diseases (principal)
CPT/HCPCS: 87635; U0003

== ENCOUNTER → 2020-01-21 07:47 | Outpatient (CLI) | payer OTHER, SELFPAY ==
[2019-11-28 12:49] VITALS: BMI 22.6
--- NOTE | 2020-01-21 07:49 | BI_ITS ---
MAMMOGRAPHY - BILATERAL SCREENING REASON FOR EXAM: Female, 64 years old. Routine annual screening examination. PERTINENT HISTORY: Mother with breast cancer. Aunt with breast cancer. TECHNIQUE: Digital bilateral breast marc (3D mammographic acquisition) in the CC and MLO projections. 2-D mediolateral oblique (MLO) and craniocaudad (CC) views of both breasts were obtained. CAD: Full Field Digital Mammography with Computer Added Detection was performed. COMPARISON: Comparison is made with prior study dated 01/18/2019 and 06/30/2018. FINDINGS: Breast Composition: The breasts are heterogeneously dense, which may obscure small masses. There are no dominant masses or suspicious calcifications. No other significant abnormalities are identified. There has been no significant change since the prior study. BI/SCREEN MAMM (CAD) W/MARC BILAT IMPRESSION: Stable bilateral screening mammogram. Yearly follow-up mammogram recommended. (A) ASSESSMENT CATEGORY: BIRADS Category 1: Negative. A letter regarding these results will be sent to the patient by the facility within 30 days. Approximately 10% of breast cancers are not detected by mammography. A normal mammogram should not delay biopsy of a clinically suspicious abnormality. [id number] Electronically Signed: Ritchie Jackson, at 9:56 EDT , Service support ,
== END ==
PROVIDERS: PCP Family Medicine; Referring Provider Nurse Practitioner Family; Visit Provider Nurse Practitioner Family
DX: Z12.31 Encounter for screening mammogram for malignant neoplasm of breast (principal); Z80.3 Family history of malignant neoplasm of breast
CPT/HCPCS: 77063; 77067

== ENCOUNTER → 2020-02-05 09:09 | Outpatient (CLI) | payer OTHER, SELFPAY ==
[2019-11-28 12:49] VITALS: BMI 22.6
--- NOTE | 2020-02-05 09:22 | MRI_ITS ---
STUDY: MRI ABDOMEN WITH AND WITHOUT CONTRAST REASON FOR EXAM: Female, 64 years old. elevated LFT''s , pancreatic cyst, F/U TECHNIQUE: Standardized fat and water weighted pulse sequences were obtained in all 3 orthogonal planes post contrast administration. DOTAREM 13 ML was administered for the contrast portion of the examination. COMPARISON: 11/23/2018 FINDINGS: The visualized lung bases are unremarkable. The visualized portions of the heart are within normal limits. Normal liver. There are surgical clips in the gallbladder fossa consistent with a prior cholecystectomy. Normal spleen. No change in 3 x 7 mm nonenhancing cyst involving the posterior aspect of the body the pancreas. Normal bilateral adrenal glands. Normal right kidney. No change in 2 cm exophytic cyst in the upper pole the left kidney. Normal visualized stomach. Normal small intestine. Normal colon. There is non-visualization of the appendix. Normal abdominal aorta. Normal inferior vena cava. Normal retroperitoneum. Normal abdominal wall. Normal osseous structures. MRI/MRI Abd WITH and W/O Contrast IMPRESSION: No change in the 3 x 7 mm cyst in the posterior body of the pancreas. Previous described cyst in the head of the pancreas is no longer visualized. Electronically Signed: Pj Diaz MD at 12:32 EDT Tel , Service support ,
[2020-02-06 07:05] LABS: CREATININE FINGERSTICK 0.91 mg/dL (0.55-1.02); EGFR FINGERSTICK > 60 mL/min (>60)
== END ==
PROVIDERS: PCP Family Medicine
DX: R94.5 Abnormal results of liver function studies (principal); K86.2 Cyst of pancreas
CPT/HCPCS: 74183; A9575

== ENCOUNTER 2020-02-28 13:06 | Outpatient (RCR) | payer OTHER, SELFPAY ==
[2019-11-28 12:49] VITALS: BMI 22.6
== END 2020-03-01 23:59 ==
LOC: EMPH 13:06
PROVIDERS: PCP Family Medicine; Referring Provider Family Medicine Geriatric Medicine; Visit Provider Family Medicine Geriatric Medicine
DX: Z03.818 Encounter for observation for suspected exposure to other biological agents ruled out (principal)
CPT/HCPCS: 87426

== ENCOUNTER 2020-03-26 10:48 | Outpatient (RCR) | payer OTHER, SELFPAY ==
[2019-11-28 12:49] VITALS: BMI 22.6
== END 2020-03-31 23:59 ==
LOC: EMPH 10:48
PROVIDERS: PCP Family Medicine; Referring Provider Family Medicine Geriatric Medicine; Visit Provider Family Medicine Geriatric Medicine
DX: Z03.818 Encounter for observation for suspected exposure to other biological agents ruled out (principal)
CPT/HCPCS: 87426

== ENCOUNTER → 2020-04-15 07:27 | Outpatient (CLI) | payer OTHER, SELFPAY ==
[2019-11-28 12:49] VITALS: BMI 22.6
[2020-04-15 10:03] LABS: Absolute Lymphocyte Count 1.27 X10^3/uL (0.83-4.51); Absolute Neutrophil Count 2.1 X10^3/uL (2.0-7.7); Basophil# 0.02 X10^3/uL; Basophil% 0.5 % (0-1); Eosinophil# 0.17 X10^3/uL; Eosinophils% 4.4 % (0-5); Hematocrit 38.3 % (37-47); Hemoglobin 12.6 g/dL (12.0-15.0); Lymphocyte # 1.27 X10^3/ul (4.0); Lymphocyte % 33.1 % (19-41); Mean Corp Hgb Conc 32.9 g/dL (32-36); Mean Corpuscular Hgb 29.5 pg (27.0-32.0); Mean Corpuscular Volume 89.7 fL (81-99); Monocyte# 0.26 X10^3/uL; Monocyte% 6.8 % (0-10); NRBC Flagged by Analyzer 0 % (0-5); Neutrophil # 2.12 X10^3/uL (2.7-7.7); Neutrophil % 55.2 % (47-70); Platelet Count 180 K/mm3 (150-450); RBC Distribution Width CV 13.2 % (11.6-14.6); RBC Distribution Width SD 43.5 fl (35.1-43.9); Red Blood Count 4.27 M/mm3 (4.2-5.4); White Blood Count 3.8 K/mm3 (4.4-11.0)
[2020-04-15 10:18] LABS: Vitamin B12 391 pg/mL (211-911); Vitamin D,25 Hydroxy 33.3 ng/mL
[2020-04-15 10:32] LABS: ALB/GLOB Ratio 1.1 RATIO (0.9-2.4); AST(SGOT) 17 U/L (15-37); Alanine Aminotransfer ALT/SGPT 24 U/L (13-56); Albumin, Serum 3.5 g/dL (3.2-5.0); Alkaline Phosphatase 90 U/L (45-117); Anion Gap 4 (5-15); BUN 15 mg/dL (7-18); BUN/Creat Ratio 21.9 RATIO (10-20); Calcium,Total 8.4 mg/dL (8.5-10.1); Chloride 110 mmol/L (98-107); Cholesterol 156 mg/dL (200); Creatinine, Serum 0.68 mg/dL (0.55-1.02); EST Glomerular Filtration Rate 92 mL/min (>60); Est Glom Filt Rate - Afr Amer 111 mL/min (>60); Ferritin 25 ng/mL (8-252); Globulin 3.3 g/dL (2.2-4.2); Glucose 82 mg/dL (74-106); High Density Lipoprotein 51 mg/dL; Iron 104 ug/dL (50-170); Magnesium 2.2 mg/dL (1.6-2.6); Potassium 4.3 mmol/L (3.5-5.1); Protein, Total 6.8 g/dL (6.4-8.2); Sodium Level 144 mmol/L (136-145); Triglycerides 118 mg/dL; Very Low Density Lipoprotein 24 mg/dL (5-40)
[2020-04-20 14:07] LABS: Vitamin B1, Thiamine 125.6 nmol/L (66.5-200.0)
[2020-04-21 15:05] LABS: Zinc, Plasma or Serum 83 ug/dL (56-134)
== END ==
PROVIDERS: PCP Family Medicine
DX: Z13.220 Encounter for screening for lipoid disorders (principal); E61.7 Deficiency of multiple nutrient elements; K90.9 Intestinal malabsorption, unspecified
CPT/HCPCS: 36415; 80053; 80061; 82306; 82607; 82728; 82746; 83540; 83735; 84425; 84630; 85025

== ENCOUNTER 2020-04-30 14:24 | Outpatient (RCR) | payer OTHER, SELFPAY ==
[2019-11-28 12:49] VITALS: BMI 22.6
== END 2020-05-01 23:59 ==
LOC: EMPH 14:24
PROVIDERS: PCP Family Medicine; Referring Provider Family Medicine Geriatric Medicine; Visit Provider Family Medicine Geriatric Medicine
DX: Z03.818 Encounter for observation for suspected exposure to other biological agents ruled out (principal)
CPT/HCPCS: 87426

== ENCOUNTER 2020-05-27 11:26 | Outpatient (RCR) | payer OTHER, SELFPAY ==
[2019-11-28 12:49] VITALS: BMI 22.6
== END 2020-06-01 23:59 ==
LOC: EMPH 11:26
PROVIDERS: PCP Family Medicine; Referring Provider Family Medicine Geriatric Medicine; Visit Provider Family Medicine Geriatric Medicine
DX: Z03.818 Encounter for observation for suspected exposure to other biological agents ruled out (principal)
CPT/HCPCS: 87426

== ENCOUNTER 2020-06-24 12:39 | Outpatient (RCR) | payer OTHER, SELFPAY ==
[2019-11-28 12:49] VITALS: BMI 22.6
== END 2020-06-29 23:59 ==
LOC: EMPH 12:39
PROVIDERS: Visit Provider Family Medicine Geriatric Medicine
DX: Z03.818 Encounter for observation for suspected exposure to other biological agents ruled out (principal)
CPT/HCPCS: 87426

== ENCOUNTER → 2020-12-16 13:20 | Outpatient (CLI) | payer MEDICARE, SELFPAY ==
[2019-11-28 12:49] VITALS: BMI 22.6
--- NOTE | 2020-12-16 13:26 | CT_ITS ---
STUDY: LOW DOSE CT LUNG CANCER SCREENING REASON FOR EXAM: Female, 65 years old. LUNG CA SCREENING . Prior smoker. Patient smoked 1-2 packs per day for 35 years. RADIATION DOSAGE (If Supplied By Facility): CTDIvol = ( 2.01 ) mGy, DLP = ( 66.95 ) mGycm TECHNIQUE: No contrast was administered. Low dose technique was utilized (average mAS-38 and kVp 120). 1.25 mm axial source images with a slice interval of 1.25-mm were reconstructed in lung windows. 2.5 mm axial source images with a slice interval of 2.5-mm were reconstructed in lung windows. 5.0 mm axial source images with a slice interval of 5.0-mm were reconstructed in soft tissue windows. Nodule measured using lung windows on PACS and/or independent workstation with automated measurement of minimum and maximum diameter. Nodule measurement reported as average diameter rounded to the nearest whole number. Growth is defined as an increase ins size of greater than 1.5 mm. COMPARISON: Comparison is made with prior examination dated 10/16/2019. NODULES: No suspicious findings are seen. Emphysema: Stable mild degree of facet and this changes. Stable bilateral apical scarring. Stable scarring in the medial segment of the right lower lobe as well as in the left lung base. Endobronchial lesion: None Aorta: Atherosclerotic plaque formation of the aortic arch. Coronary arteries: Coronary artery calcification. Mediastinal nodes: Small benign-appearing mediastinal lymph nodes. Other chest and abdominal findings: CT/Low Dose CT Lung Screening IMPRESSION: Lung-RADS category 2 - Continue annual screening with LDCT in 12 months. IMPORTANT NOTES FOR USE: ACR Lung-RADS Version 1.1 Assessment Categories Release Date: 2018 Category: Coded 0-4 bases on nodule(s) with highest degree of suspicion. Negative screen is defined as categories 1 and 2; a positive screen is defined as categories 3 and 4. Category 3 and 4A nodules that are unchanged on interval CT should be coded as category 2, and individuals returned to screening in 12 months. Category 4X: Category 3 or 4 nodules with additional imaging findings that increase the suspicion of lung cancer, such as spiculation, GGN that doubles in size in 1 year, enlarged lymph notes, etc. Category Modifiers: S (significant finding unrelated to lung cancer) Electronically Signed: Ritchie Jackson MD at 14:42 EDT , Service support ,
== END ==
PROVIDERS: PCP Family Medicine; Referring Provider Nurse Practitioner Family; Visit Provider Nurse Practitioner Family
DX: Z12.2 Encounter for screening for malignant neoplasm of respiratory organs (principal); Z87.891 Personal history of nicotine dependence
CPT/HCPCS: 71271

== ENCOUNTER → 2021-03-13 08:05 | Outpatient (CLI) | payer MEDICARE, SELFPAY ==
[2021-03-13 10:12] LABS: Absolute Lymphocyte Count 1.59 X10^3/uL (0.83-4.51); Absolute Neutrophil Count 2.3 X10^3/uL (2.0-7.7); Basophil# 0.03 X10^3/uL; Basophil% 0.7 % (0-1); Eosinophil# 0.12 X10^3/uL; Eosinophils% 2.8 % (0-5); Hematocrit 34.9 % (37-47); Hemoglobin 11.6 g/dL (12.0-15.0); Lymphocyte # 1.59 X10^3/ul (0.83-4.51); Lymphocyte % 36.8 % (19-41); Mean Corp Hgb Conc 33.2 g/dL (32-36); Mean Corpuscular Hgb 30.6 pg (27.0-32.0); Mean Corpuscular Volume 92.1 fL (81-99); Mean Platelet Vol. 10.9 fl (6.2-12.0); Monocyte# 0.29 X10^3/uL; Monocyte% 6.7 % (0-10); NRBC Flagged by Analyzer 0 % (0-5); Neutrophil # 2.28 X10^3/uL (2.7-7.7); Neutrophil % 52.8 % (47-70); Platelet Count 220 K/mm3 (150-450); RBC Distribution Width CV 12.7 % (11.6-14.6); Red Blood Count 3.79 M/mm3 (4.2-5.4); White Blood Count 4.3 K/mm3 (4.4-11.0)
[2021-03-13 10:29] LABS: ALB/GLOB Ratio 1.1 RATIO (0.9-2.4); AST(SGOT) 22 U/L (15-37); Alanine Aminotransfer ALT/SGPT 28 U/L (13-56); Albumin, Serum 3.6 g/dL (3.2-5.0); Alkaline Phosphatase 64 U/L (45-117); Anion Gap 3 (5-15); BUN 17 mg/dL (7-18); BUN/Creat Ratio 22.1 RATIO (10-20); Calcium,Total 9.2 mg/dL (8.5-10.1); Chloride 105 mmol/L (98-107); Cholesterol 176 mg/dL (200); Creatinine, Serum 0.77 mg/dL (0.55-1.02); EST Glomerular Filtration Rate 80 mL/min (>60); Est Glom Filt Rate - Afr Amer 97 mL/min (>60); Globulin 3.4 g/dL (2.2-4.2); Glucose 87 mg/dL (74-106); High Density Lipoprotein 58 mg/dL; Potassium 3.8 mmol/L (3.5-5.1); Sodium Level 141 mmol/L (136-145); Triglycerides 89 mg/dL; Very Low Density Lipoprotein 18 mg/dL (5-40)
== END ==
PROVIDERS: PCP Family Medicine; Referring Provider Family Medicine; Visit Provider Family Medicine
DX: E78.00 Pure hypercholesterolemia, unspecified (principal); K21.9 Gastro-esophageal reflux disease without esophagitis
CPT/HCPCS: 36415; 80053; 80061; 85025

== ENCOUNTER 2021-04-23 08:30 | Outpatient (RCR) | payer MEDICARE, SELFPAY ==
--- NOTE | 2021-04-03 09:50 | HP.PTEVAL_ITS ---
Patient's Visit Information MALLORY SIDDIQI is a 65 year old F referred to Physical Therapy by ELMER Cornell with a diagnosis of RIGHT SHLD ARTHROSIS. Date of Evaluation: 04/03/21 Physical Therapist: Alanis Borja, PT, Cert MDT - Visit Plan Plan: RIGHT SHLD MANUAL THERAPY EACH VISIT UNTIL FULL PAINFREE RIGHT SHLD ROM. INCLUDE SHLD MOBILIZATION, PROM AND AAROM ALL PLANES TOLERATED. MH AND CP NEEDED. POSTURE CORRECTION AND STRENGTHENING. RIGHT UE STRENGTHENING TOLERATED BUT STARTING SLOW AND ONLY ADDING 2-3 NEW EX'S PER VISIT. CONSIDER HOME DEMETRIUS EARLY ON. - Subjective Work/Leisure: RECENTLY RETIRED NURSE. Disability: NO. Present symptoms: RIGHT SHOULDER AND UPPER ARM PAIN. NO NUMBNESS OR TINGLING. NO NECK PAIN. Present since: 6 MONTHS AGO. Pain Scale: Worst - 8/10 (BRIEF) Least - 0/10. Currently: 0/10. Commenced as a result of: NO APPARENT REASON. Symptoms at onset: SAME. Worse: MOVEMENT. Better: REST. Disturbed sleep: YES. Previous history/Previous treatment: SIMILAR RIGHT SHLD PROBLEM A FEW YEARS AGO HELPED BY PHYSICAL THERPAY HERE AT [facility] BUT IT WASN'T BAD THEN. NO HISTORY OF NECK PROBLEMS. NO RIGHT SHLD SURGERY OR INJECTIONS. This episode: THIS PT CONSULT ONLY. PATIENT REPORTS HER DOCTOR MENTIONED GOING TO AN ORTHO DOC BUT PATIENT WANTS TO TRY PT FIRST. Dizziness: NO. Tinnitis: NO. Nausea: NO. Shortness of Breath: NO. Difficulty Swollowing: NO. Gait: NORMAL. Accidents: NO. Unexplained weight loss: NO. Imaging: NO. PMH/Recent major surgery: UNREMARKABLE. OTHER: PATIENT REPORTS IT HAS GOTTEN TO THE POINT [facility]. PATIENT REPORTS SHE DID WAKE UP WITH A CROOK IN HER NECK THE OTHER DAY BUT THE PAIN WAS ON THE LEFT SIDE OF HER NECK NOT RIGHT. - Objective Sitting Posture/Standing Posture: FAIR. Active Correction of posture: NE. Other Observations: INDEP GAIT AND TRANSFERS. Motor deficit: L UE WFL. RIGHT SHLD FLEX 3-/5, ABD 2+/5, IR 3-/5, ER 2-/5. ELBOW 4/5. Sensory deficit: REILLY UE LIGHT TOUCH SENSATION INTACT AND SYMMETRICAL. ROM deficit: L UE WFL. R SHLD ACTIVE FLEX 125 DEG, PASSIVE 150 DEG. PASSIVE ABD 120, IR 40 DEG AND ER 45 DEG. ACTIVE ABD 70 DEG. Dural Signs: NEGATIVE. Cervical Mvmt Loss: Flex: NIL. Pro: NIL. Ext: MIN. Ret: MOD. RSB: MOD. LSB: MIN. R Rot: MOD. L Rot: MIN. PATIENT DENIES RIGHT SHLD PAIN WITH CERVICAL ROM TESTING BUT RIGHT SB AND RIGHT ROTATION PROVOKE LEFT NECK PAIN. Postural strength: FAIR. Palpation: NO ACUTE RIGHT SHLD TENDERNESS OR UPPER TRAP TENDERNESS. TREATMENT: NEUROMUSCULAR REEDUCATION - RETRAINING OF MVMT AND INSTRUCTION IN AVOIDANCE OF PROLONGED REACHING ACTIVITIES AT THIS TIME. INSTRUCTION IN AVOIDANCE OF PAINFUL ACTIVITIES AT THIS TIME. HEP INSTRUCTION FOR SUPINE WAND FLEXION (2X10 3X'S A DAY), TABLE WALK AWAYS FOR GENTLE PASSIVE SHLD FLEXION AND RIGHT UE WALL SLIDES INTO FLEXION (X5-10 REPS EVERY 2-3 HOURS). - Balance/Special Test Scores Quick DASH Score: [phone] - Goals Goal 1:: DECREASE C/O RIGHT SHLD PAIN Goal Time Frame: 4-6 Weeks Goal 2:: INCREASE PAINFREE FUNCTIONAL ROM OF RIGHT UE Goal Time Frame: 4-6 Weeks Goal 3:: INCREASE FUNCTIONAL STRENGTH OF RIGHT UE Goal Time Frame: 4-6 Weeks Goal 4:: PATIENT WILL BE INDEP WITH A HEP FOR CONTINUED IMPROVEMENT ONCE FORMAL PHYSICAL THERAPY CONCLUDES. Goal Time Frame: 4-6 Weeks - Anticipated Interventions Patient/Client Instruction: Educate patient on: Condition, Plan of Care, Risk Factors For the Purpose of:: To improve self management Therapeutic Exercise to Include: Strength training, Body mechanics, Postural training, Flexibilty training, Neuromotor development, Passive ROM, Active ROM, Scapular Strength/Stabilization For the Purpose of:: To decrease pain, To increase ROM, To improve muscle performance and motor function, To increase tolerance to activity/condition/position, To improve ability of physical actions for home/community/work/leisure Manual Therapy Techniques to Include: Mobilization, Passive ROM For the Purpose of:: To decrease pain, To increase ROM, To improve nutrient delivery to tissue Cryotherapy (ice pack, ice massage): Yes Thermo therapy (hot pack): Yes For the Purpose of:: To decrease pain, To decrease swelling/inflammation, To improve nutrient delivery to tissue Thank you for the opportunity to evaluate your patient. For Medicare and Medicare HMO plans, please review the plan of care and approve it. It will need to be FAXED BACK to us at [phone] for Medicare purposes. For Medicare only, by signing this I certify the plan of care. Please let me know if there are questions or concerns regarding this plan of care. Physician Signature: Date:
--- NOTE | 2021-04-23 13:12 | HP.PTDCSUM_ITS ---
It has been my pleasure to treat MALLORY SIDDIQI referred by ELMER Cornell, with the diagnosis of RIGHT SHLD ARTHROSIS for a total of 7 visit(s). Discharge Date: Please see the following information for a summary of their discharge status. Subjective: PATIENT REPORTS HER ROM IS BETTER AND HER PAIN WITH REACHING HAS IMPROVED BUT PAIN AFTER MOVING/USING ARM IS STILL BAD. THE PAIN STILL HINDERS DRIVING. STILL GETTING A LOT OF PAIN AFTER CERTAIN ACTIVITIES LIKE CURLING HAIR. BUT I AM SLEEPING BETTER. IN GENERAL FEELS REALLY GUARDED WITH RIGHT ARM MVMTS. GOOD DAYS AND BAD DAYS. REPORTS THAT TODAY SHE COULDNT' PUT HER COAT ON HERSELF BUT THE OTHER DAY SHE COULD. Right shoulder Pain Intensity (Out of 10): 8 R posterior ulna Pain Intensity (Out of 10): 1 % Improvement: 25 Objective/Function: PATIENT WAS SEEN TODAY FOR RE-ASSESSMENT OF PROGRESS TOWARD THE SET PT GOALS AND THE NEED FOR FURTHER PHYSICAL THERAPY VS READINESS FOR DISCHARGE. SLOW PROGRESSION TOWARD PT GOALS. APPROPRIATE FOR PHYSICIAN RE- CHECK AND CONTINUED HEP TOLERATED. PATIENT AGREEABLE. UPON EXAM TODAY: Motor deficit: L UE WFL. RIGHT SHLD FLEX 3-/5, ABD 3-/5, IR 3+/5, ER 2+/5. ELBOW 4/5. Sensory deficit: REILLY UE LIGHT TOUCH SENSATION INTACT AND SYMMETRICAL. ROM deficit: L UE WFL. R SHLD ACTIVE FLEX 155 DEG IN SITTING, PASSIVE 155 DEG IN SUPINE. PASSIVE ABD 160 IN SUPINE WITH CATCH AT ABOUT 75 DEG, IR 73 DEG AND ER 78 DEG. IR AND ER MEASURED IN SUPINE WITH APPROX 75 DEG ABD. ACTIVE ABD 160 DEG IN SITTING. Dural Signs: NEGATIVE. Cervical Mvmt Loss: Flex: NIL. Pro: NIL. Ext: MIN. Ret: MOD. RSB: MIN. LSB: MIN. R Rot: MOD. L Rot: MIN. PATIENT DENIES RIGHT SHLD PAIN WITH CERVICAL ROM TESTING BUT RIGHT ROTATION PROVOKE LEFT NECK PAIN. Postural strength: FAIR. Palpation: NO ACUTE RIGHT SHLD TENDERNESS OR UPPER TRAP TENDERNESS. Goal 1:: DECREASE C/O RIGHT SHLD PAIN Goal Progress: Progressing Goal 2:: INCREASE PAINFREE FUNCTIONAL ROM OF RIGHT UE Goal Progress: Progressing Goal 3:: INCREASE FUNCTIONAL STRENGTH OF RIGHT UE Goal Progress: Progressing Goal 4:: PATIENT WILL BE INDEP WITH A HEP FOR CONTINUED IMPROVEMENT ONCE FORMAL PHYSICAL THERAPY CONCLUDES. Goal Progress: Progressing Plan: D/C TO HEP AND PHYSICIAN FOLLOW UP If there are questions or concerns regarding this patient's physical therapy, please feel free to call me at [phone]. Thank you for the referral of this patient. Sincerely, Alanis Borja, PT, Cert MDT Balance/Gait/Functional tests - Balance/Special Test Scores Quick DASH Score: [phone]
== END 2021-04-23 19:00 | disposition home or self-care (01) ==
LOC: PT 08:30
PROVIDERS: PCP Family Medicine; Referring Provider Nurse Practitioner Family; Visit Provider Nurse Practitioner Family
DX: M19.011 Primary osteoarthritis, right shoulder (principal)
CPT/HCPCS: 97110; 97161; 97164; 97530

== ENCOUNTER → 2022-01-19 | Outpatient (CLI) | payer MEDICARE, SELFPAY ==
--- NOTE | 2022-01-19 12:37 | CT_ITS ---
STUDY: LOW DOSE CT LUNG CANCER SCREENING REASON FOR EXAM: Female, 66 years old. Lung cancer screening -- and gt; 30 pk yr hx;former smoker; asymptomatic RADIATION DOSAGE (If Supplied By Facility): CTDIvol = ( 2.01 ) mGy, DLP = ( 62.18 ) mGycm TECHNIQUE: No contrast was administered. Low dose technique was utilized (average mAS-38 and kVp 120). 1.25 mm axial source images with a slice interval of 1.25-mm were reconstructed in lung windows. 2.5 mm axial source images with a slice interval of 2.5-mm were reconstructed in lung windows. 5.0 mm axial source images with a slice interval of 5.0-mm were reconstructed in soft tissue windows. COMPARISON: 12/16/2020. NODULES: No evidence of parenchymal lung nodules or masses. Endobronchial lesion: None Aorta: Subtle scattered atherosclerotic calcifications visualized in the thoracic aorta but no evidence of aneurysmal dilatation or arterial dissection is seen. CORONARY ARTERIES: Subtle scattered coronary artery calcifications are seen most prominent in the left anterior descending occupying less than one third of the vessel. Heart: No evidence of cardiomegaly, no evidence of pericardial effusion. Pulmonary artery: Unremarkable Mediastinal nodes: No evidence of mediastinal lymph nodes seen. Other chest and abdominal findings: Mild bronchial wall thickening visualized no evidence of bronchiectasis, no evidence of endoluminal lesions is seen. Linear streaky opacities visualized in the lower lung field suggestive of scarring. CT/Low Dose CT Lung Screening IMPRESSION: Lung-RADS category 2 - Continue annual screening with LDCT in 12 months. IMPORTANT NOTES FOR USE: ACR Lung-RADS Version 1.1 Assessment Categories Release Date: 2018 Category: Coded 0-4 bases on nodule(s) with highest degree of suspicion. Negative screen is defined as categories 1 and 2; a positive screen is defined as categories 3 and 4. Category 3 and 4A nodules that are unchanged on interval CT should be coded as category 2, and individuals returned to screening in 12 months. Category 4X: Category 3 or 4 nodules with additional imaging findings that increase the suspicion of lung cancer, such as spiculation, GGN that doubles in size in 1 year, enlarged lymph notes, etc. Category Modifiers: S (significant finding unrelated to lung cancer) Electronically Signed: Jasvir Almanza MD at 13:09 EDT ,
== END | disposition home or self-care (01) ==
LOC: CT 12:35
PROVIDERS: PCP Family Medicine; Referring Provider Nurse Practitioner Family; Visit Provider Nurse Practitioner Family
DX: Z12.2 Encounter for screening for malignant neoplasm of respiratory organs (principal); Z87.891 Personal history of nicotine dependence
CPT/HCPCS: 71271

== ENCOUNTER → 2022-05-11 | Outpatient (CLI) | payer MEDICARE, SELFPAY ==
[2022-05-11 15:33] LABS: Thyroid Stim Hormone (TSH) 1.97 uIU/mL (0.358-3.74)
== END | disposition home or self-care (01) ==
LOC: MFPLAB 12:27
PROVIDERS: PCP Family Medicine; Visit Provider Family Medicine
DX: R53.83 Other fatigue (principal)
CPT/HCPCS: 36415; 84443

== ENCOUNTER → 2022-08-09 | Outpatient (CLI) | payer MEDICARE, SELFPAY ==
[2022-08-09 15:00] LABS: Absolute Lymphocyte Count 1.17 X10^3/uL (0.83-4.51); Basophil# 0.01 X10^3/uL; Basophil% 0.2 % (0-1); Eosinophil# 0.15 X10^3/uL; Eosinophils% 3.2 % (0-5); Hematocrit 35.3 % (37-47); Hemoglobin 11.6 g/dL (12.0-15.0); Lymphocyte # 1.17 X10^3/ul (0.83-4.51); Lymphocyte % 24.9 % (19-41); Mean Corp Hgb Conc 32.9 g/dL (32-36); Mean Corpuscular Hgb 30.9 pg (27.0-32.0); Mean Corpuscular Volume 94.1 fL (81-99); Mean Platelet Vol. 10.5 fl (6.2-12.0); Monocyte# 0.33 X10^3/uL; NRBC Flagged by Analyzer 0 % (0-5); Neutrophil # 3.03 X10^3/uL (2.7-7.7); Neutrophil % 64.5 % (47-70); Platelet Count 250 K/mm3 (150-450); RBC Distribution Width CV 13.6 % (11.6-14.6); RBC Distribution Width SD 46.4 fl (35.1-43.9); Red Blood Count 3.75 M/mm3 (4.2-5.4); White Blood Count 4.7 K/mm3 (4.4-11.0)
[2022-08-09 15:41] LABS: ALB/GLOB Ratio 1.2 RATIO (0.9-2.4); AST(SGOT) 272 U/L (15-37); Alanine Aminotransfer ALT/SGPT 160 U/L (13-56); Albumin, Serum 3.8 g/dL (3.2-5.0); Alkaline Phosphatase 115 U/L (45-117); Amylase 124 U/L (25-115); Anion Gap 2 (5-15); BUN 15 mg/dL (7-18); BUN/Creat Ratio 20.4 RATIO (10-20); Calcium,Total 8.8 mg/dL (8.5-10.1); Chloride 109 mmol/L (98-107); Creatinine, Serum 0.73 mg/dL (0.55-1.02); EST Glomerular Filtration Rate 84 mL/min (>60); Est Glom Filt Rate - Afr Amer 102 mL/min (>60); Globulin 3.1 g/dL (2.2-4.2); Glucose 108 mg/dL (74-106); Lipase 332 U/L (73-393); Potassium 3.6 mmol/L (3.5-5.1); Protein, Total 6.9 g/dL (6.4-8.2); Sodium Level 140 mmol/L (136-145)
== END | disposition home or self-care (01) ==
LOC: MFPLAB 11:37
PROVIDERS: PCP Family Medicine; Visit Provider Family Medicine
DX: R10.13 Epigastric pain (principal)
CPT/HCPCS: 36415; 80053; 82150; 83690; 85025

== ENCOUNTER → 2022-08-09 | Outpatient (CLI) | payer MEDICARE, SELFPAY ==
--- NOTE | 2022-08-09 16:14 | US_ITS ---
INDICATION: EPIGASTRIC ABDOMINAL PAIN EXAMINATION: Ultrasound US Abdomen RUQ (limited) TECHNIQUE: Walsh-scale and color Doppler imaging was performed of the abdomen. COMPARISON: None. FINDINGS: LIVER: There is normal echotexture. No focal hepatic lesion. No intrahepatic biliary ductal dilatation. There is no free fluid. GALLBLADDER AND BILIARY TREE: Status post cholecystectomy. The proximal common bile duct measures 8 mm, which is mildly prominent. SONOGRAPHIC PALMER''S SIGN: Negative. PANCREAS: Limited visualization of the pancreatic tail. The visualized portion is normal. Right kidney: 10.7 x 4.8 x 4.0 cm. The cortex is 10 mm. There is no hydronephrosis. No shadowing calculus or perinephric collection is demonstrated. There is a 1 cm cyst. VESSELS: Submitted longitudinal images of the intra-abdominal aorta demonstrate no gross abnormalities and are unremarkable. The IVC is patent. US/Abdomen Limited IMPRESSION: Right renal cyst. Status post cholecystectomy. Electronically Signed: Arjun Vargas DO at 17:28 EDT ,
== END | disposition home or self-care (01) ==
LOC: US 16:11
PROVIDERS: PCP Family Medicine; Referring Provider Family Medicine; Visit Provider Family Medicine
DX: R10.13 Epigastric pain (principal); Z90.49 Acquired absence of other specified parts of digestive tract
CPT/HCPCS: 36415; 76705; 80053; 82150; 83690; 85025

== ENCOUNTER → 2022-08-13 | Outpatient (CLI) | payer MEDICARE, SELFPAY ==
[2022-08-13 10:23] LABS: Absolute Lymphocyte Count 1.04 X10^3/uL (0.83-4.51); Basophil# 0.03 X10^3/uL; Basophil% 0.9 % (0-1); Eosinophil# 0.19 X10^3/uL; Eosinophils% 5.4 % (0-5); Hematocrit 34.8 % (37-47); Hemoglobin 11.6 g/dL (12.0-15.0); Lymphocyte # 1.04 X10^3/ul (0.83-4.51); Lymphocyte % 29.6 % (19-41); Mean Corp Hgb Conc 33.3 g/dL (32-36); Mean Corpuscular Hgb 31.2 pg (27.0-32.0); Mean Corpuscular Volume 93.5 fL (81-99); Mean Platelet Vol. 10.8 fl (6.2-12.0); Monocyte# 0.24 X10^3/uL; Monocyte% 6.8 % (0-10); NRBC Flagged by Analyzer 0 % (0-5); Platelet Count 237 K/mm3 (150-450); RBC Distribution Width CV 13.5 % (11.6-14.6); RBC Distribution Width SD 46.2 fl (35.1-43.9); Red Blood Count 3.72 M/mm3 (4.2-5.4); White Blood Count 3.5 K/mm3 (4.4-11.0)
[2022-08-13 11:37] LABS: Vitamin B12 > 2000 pg/mL (211-911)
[2022-08-13 12:00] LABS: AST(SGOT) 29 U/L (15-37); Alanine Aminotransfer ALT/SGPT 65 U/L (13-56); Albumin, Serum 3.8 g/dL (3.2-5.0); Alkaline Phosphatase 101 U/L (45-117); Bilirubin, Direct 0.15 mg/dL (0.00-0.30); Ferritin 40 ng/mL (8-252); Globulin 3.2 g/dL (2.2-4.2); Iron 80 ug/dL (50-170); Iron Binding Capacity,Total 347 ug/dL (250-450); PERCENT IRON SATURATION 23.1 % (15.0-55.0)
== END | disposition home or self-care (01) ==
PROVIDERS: PCP Family Medicine; Referring Provider Family Medicine; Visit Provider Family Medicine
DX: D64.9 Anemia, unspecified (principal); R74.8 Abnormal levels of other serum enzymes
CPT/HCPCS: 36415; 80076; 82607; 82728; 82746; 83540; 83550; 85025

== ENCOUNTER → 2022-08-19 | Outpatient (CLI) | payer MEDICARE, SELFPAY ==
--- NOTE | 2022-08-19 13:24 | CT_ITS ---
STUDY: CT ABDOMEN AND PELVIS WITH CONTRAST REASON FOR EXAM: Female, 67 years old. ELEVATED LIVER ENZYMES. 3 month history of intermittent epigastric pain. RADIATION DOSAGE (If Supplied By Facility): CTDIvol = ( 14.92 ) mGy, DLP = ( 823.03 ) mGycm TECHNIQUE: Transaxial images were obtained from the dome of the diaphragm to the symphysis pubis without oral contrast. Oral and amp;amp; IV Gastrografin and amp;amp; 100mL Isovue-370 was administered. Sagittal and coronal images were reconstructed. Individualized dose optimization techniques were used for this CT. COMPARISON: Comparison is made with prior study dated September 28, 2018. FINDINGS: Minimal linear scarring in the posterior medial segment of the right lower lung. The visualized portions of the heart are within normal limits. Normal liver. The patient is status post cholecystectomy. Normal spleen. Normal pancreas. Normal bilateral adrenal glands. Normal right kidney. Normal left kidney. The patient is status post subtotal gastrectomy for gastric bypass surgery. In the terminal ileum, there is evidence of a 5 cm x 6 cm x 3.4 cm soft tissue mass with a possible ulcerations. This may represent either a neoplastic process or possible Crohn''s disease. Clinical correlation recommended. There appears to be prior partial resection of the cecum and ascending colon. There is non-visualization of the appendix. There is diffuse atherosclerotic calcification of the abdominal aorta, without a demonstrated aneurysm. Normal inferior vena cava. Normal retroperitoneum. Normal urinary bladder. Normal abdominal wall. Normal osseous structures. CT/Abdomen/Pelvis WITH Contrast IMPRESSION: Status post resection of the cecum and portion of the ascending colon with a soft tissue mass in the region of the terminal ileum as described. Clinical correlation recommended. Electronically Signed: Ritchie Jackson MD at 15:32 EDT ,
== END | disposition home or self-care (01) ==
LOC: CT 13:21
PROVIDERS: PCP Family Medicine; Referring Provider Family Medicine; Visit Provider Family Medicine
DX: R74.8 Abnormal levels of other serum enzymes (principal)
CPT/HCPCS: 74177; Q9967

== ENCOUNTER → 2023-02-08 | Outpatient (CLI) | payer MEDICARE, SELFPAY ==
--- NOTE | 2023-02-08 12:33 | CT_ITS ---
HISTORY: Lung cancer screening -- and gt;20 pk yr hx;former smoker; asymptomatic. TECHNIQUE: Helically acquired images were obtained of the chest without contrast. A radiation dose optimization technique was used for this scan. 794 images. COMPARISON: 01/19/2022, 12/16/2020. FINDINGS: LARGE AIRWAYS: Patent. LUNGS: Very mild emphysema with biapical scarring. Stable 2 to 3 mm groundglass nodules in the periphery of the right upper lobe. Chronic very mild lingular and right lower lobe scarring. PLEURA: No pneumothorax or significant pleural effusion. HEART/PERICARDIUM: Heart within normal limits in size with multivessel coronary artery calcification. No pericardial effusion. VESSELS: Thoracic aorta nondilated. Mild atherosclerosis. MEDIASTINUM/HANDY: No pathologically enlarged adenopathy. UPPER ABDOMEN: Gastric postoperative change. Small left renal cyst again seen. BONES: Osteopenia and mild degenerative change. CT/Low Dose CT Lung Screening IMPRESSION: No significant interval change. Lung-RADS category 2: Continue annual screening with low dose CT. Electronically Signed: Martha Zuniga MD at 13:53 EDT ,
== END | disposition home or self-care (01) ==
LOC: CT 12:33
PROVIDERS: PCP Family Medicine; Referring Provider Nurse Practitioner Family; Visit Provider Nurse Practitioner Family
DX: Z12.2 Encounter for screening for malignant neoplasm of respiratory organs (principal); Z87.891 Personal history of nicotine dependence
CPT/HCPCS: 71271

== ENCOUNTER → 2023-09-15 | Outpatient (CLI) | payer MEDICARE, SELFPAY ==
[2023-09-15 10:08] LABS: Absolute Lymphocyte Count 0.98 X10^3/uL (0.83-4.51); Basophil# 0.03 X10^3/uL; Basophil% 0.7 % (0-1); Eosinophil# 0.16 X10^3/uL; Eosinophils% 3.6 % (0-5); Hematocrit 38.9 % (37-47); Hemoglobin 12.6 g/dL (12.0-15.0); Lymphocyte # 0.98 X10^3/ul (0.83-4.51); Mean Corp Hgb Conc 32.4 g/dL (32-36); Mean Corpuscular Hgb 29.3 pg (27.0-32.0); Mean Corpuscular Volume 90.5 fL (81-99); Mean Platelet Vol. 10.6 fl (6.2-12.0); Monocyte% 6.7 % (0-10); NRBC Flagged by Analyzer 0 % (0-5); Neutrophil # 2.98 X10^3/uL (2.7-7.7); Neutrophil % 66.8 % (47-70); Platelet Count 228 K/mm3 (150-450); RBC Distribution Width CV 13.1 % (11.6-14.6); RBC Distribution Width SD 42.5 fl (35.1-43.9); White Blood Count 4.5 K/mm3 (4.4-11.0)
[2023-09-15 10:51] LABS: ALB/GLOB Ratio 1.1 RATIO (0.9-2.4); AST(SGOT) 20 U/L (15-37); Alanine Aminotransfer ALT/SGPT 20 U/L (13-56); Albumin, Serum 3.8 g/dL (3.2-5.0); Alkaline Phosphatase 99 U/L (45-117); Anion Gap 3 (5-15); BUN 12 mg/dL (7-18); BUN/Creat Ratio 15.1 RATIO (10-20); Chloride 108 mmol/L (98-107); EST Glomerular Filtration Rate 76 mL/min (>60); Est Glom Filt Rate - Afr Amer 92 mL/min (>60); Ferritin 45 ng/mL (8-252); Globulin 3.4 g/dL (2.2-4.2); Glucose 108 mg/dL (74-106); Potassium 4.4 mmol/L (3.5-5.1); Protein, Total 7.2 g/dL (6.4-8.2); Sodium Level 139 mmol/L (136-145); T4 Free Direct 0.96 ng/dL (0.76-1.46); Thyroid Stim Hormone (TSH) 1.88 uIU/mL (0.358-3.74)
[2023-09-19 08:08] LABS: Anti-Nuclear Antibody Test Positive (.)
== END | disposition home or self-care (01) ==
LOC: MTLAB 08:21
PROVIDERS: PCP Family Medicine; Referring Provider Physician Assistant; Visit Provider Physician Assistant
DX: L64.8 Other androgenic alopecia (principal)
CPT/HCPCS: 36415; 80053; 82728; 84439; 84443; 85025; 86038

== ENCOUNTER → 2023-12-05 | Outpatient (CLI) | payer MEDICARE, SELFPAY ==
[2023-12-05 18:15] LABS: Potassium 4.4 mmol/L (3.5-5.1)
== END | disposition home or self-care (01) ==
LOC: MTLAB 16:44
PROVIDERS: PCP Family Medicine; Referring Provider Physician Assistant; Visit Provider Physician Assistant
DX: L64.8 Other androgenic alopecia (principal)
CPT/HCPCS: 36415; 84132

== ENCOUNTER → 2023-12-23 | Outpatient (CLI) | payer MEDICARE, SELFPAY ==
[2023-12-23 10:57] LABS: Rheumatoid Factor < 10.0 IU/mL (<15)
[2023-12-25 14:07] LABS: Dilute Prothrombin Time (dPT) 37.5 sec (0.0-47.6); Dilute Russell Viper Venom 34.5 sec (0.0-47.0); Interpretation Comment: (.); Thrombin Time 18.2 sec (0.0-23.0); dPT Confirm Ratio 0.98 Ratio (0.00-1.34)
[2023-12-28 15:09] LABS: Alpha Antitrypsin Serum 131 mg/dL (101-187); Anti-Histone Abs 0.5 Units (0.0-0.9); Anti-Jo <0.2 AI (0.0-0.9); SJOGREN'S Anti-SS-A test < 0.2 AI (0.0-0.9); SJOGREN'S Anti-SS-B test < 0.2 AI (0.0-0.9)
== END | disposition home or self-care (01) ==
LOC: MFPLAB 08:47
PROVIDERS: PCP Family Medicine; Visit Provider Family Medicine
DX: R76.8 Other specified abnormal immunological findings in serum (principal)
CPT/HCPCS: 36415; 82103; 86235; 86431